=== PATIENT | female | born 1935 | race Caucasian/White ===

== ENCOUNTER 2021-01-20 14:42 | Outpatient (CLI) | payer MEDICARE, SELFPAY ==
--- NOTE | ~2021-01-20 | XR_ITS ---
XR bone survey comp/metastic 01/20/2021 16:12 Indication: Stable myeloma Procedure: Skeletal survey performed including AP view of the chest, abdomen and pelvis; AP and later al swimmer's views of the cervical, thoracic and lumbar spine; lateral view of the skull and AP and l ateral views of the appendicular skeleton including the hands and feet Comparison: 06/16/2017 Findings: There are subtle lytic lesions of the right humerus seen on one view only. No other suspici ous lytic or blastic lesions are identified. There is right frontal craniotomy defect. Old healed fra cture of the left radius. Moderate spondylosis of the cervical, thoracic and lumbar spine. 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 There is moderate polyarticular osteoart hritis Impression: 1: Subtle lytic lesions of the right humerus seen on one view only. Myelomatous involvement cannot be excluded. Otherwise, no suspicious lytic or blastic bone lesions. Reviewed, dictated and finalized at location A. R INSPECTOR Impression: 1: Subtle lytic lesions of the right humerus seen on one view only. Myelomatous involvement cannot be excluded. Otherwise, no suspicious lytic or blastic bone lesions.
== END 2021-01-20 14:43 | disposition home or self-care (01) ==
PROVIDERS: PCP Internal Medicine; Visit Provider Internal Medicine Hematology & Oncology
DX: C90.00 Multiple myeloma not having achieved remission (principal)
CPT/HCPCS: 77075

== ENCOUNTER 2021-04-23 12:47 | Outpatient (CLI) | payer MEDICARE, SELFPAY ==
--- NOTE | ~2021-04-23 | MR_ITS ---
EXAMINATION: MR brain/brain stem wo/w con DATE: 04/23/2021 13:46 INDICATION: Multiple myeloma not having achieved remission. TECHNIQUE: Magnetic resonance imaging (MRI) of the brain and brainstem was performed without with 15 mL MultiHance intravenous contrast. Sequences included sagittal and axial T1-weighted FSE, axial diff usion-weighted FS EPI, axial T2*-weighted GRE, axial T2-weighted FLAIR Propeller, and axial T2-weight ed Propeller. Postcontrast sequences included axial, sagittal, and coronal T1-weighted FSE. Apparent diffusion coefficient (ADC) maps were created. COMPARISON: None. FINDINGS: There is chronic encephalomalacia in anterior right frontal lobe with old blood products. T here are changes of right-sided craniotomy. There is no acute ischemic infarct or intracranial mass l esion. There are scattered areas of nonspecific increased T2-weighted signal intensity in the cerebra l white matter and genny, which is within normal limits for the patient's age. There is mild ex vacuo dilatation of anterior body of right lateral ventricle. There are likely changes of ocular lens repla cement surgeries. There is mild mucosal thickening in the paranasal sinuses. There is a trace right m astoid effusion. IMPRESSION: 1. Chronic encephalomalacia in anterior right frontal lobe. Reviewed, dictated and finalized at location A.
--- NOTE | ~2021-04-23 | PE_ITS ---
EXAMINATION: PET skull to mid thigh DATE: 04/23/2021 15:48 INDICATION: Multiple myeloma TECHNIQUE: Blood glucose level was 95 mg/dL. 8.963 mCi of 18-fluorodeoxyglucose (18-FDG) was administ ered i.v. Low dose computed tomography (CT) images were acquired from the base of the brain to the pr oximal thighs for attenuation correction and anatomic localization. Positron emission tomography (PET ) images were acquired in the same distribution beginning 61 minutes after injection. Images includin g fused PET/CT images were reconstructed in axial, coronal, and sagittal planes. Automated exposure c ontrol technique was employed. The dose-length product was 990.83mGy-cm. COMPARISON: PET/CT dated 08/28/2019 FINDINGS: Head/neck: Encephalomalacia in the anterior right frontal lobe with overlying right frontal craniotomy. There is symmetric increased activity in the oral cavity, palatine tonsils, parotid glands, longus capitis mu scles, laryngeal muscles and ocular muscles without CT correlate, likely physiologic. No pathological ly enlarged cervical lymphadenopathy or suspicious foci of increased FDG uptake in the visualized hea d or neck. Chest: Calcified right upper lobe nodule consistent with old granulomatous disease. No other pulmonary nodul es, pulmonary edema, pneumonia or pleural effusion. Heart size is normal. Thoracic aorta is normal in caliber. No pathologically enlarged or FDG avid thoracic lymphadenopathy. Abdomen/pelvis/proximal thighs: Physiologic renal accumulation and excretion of FDG activity in the kidneys, bladder and along portio ns of ureters. There are couple renal cysts the largest a 3.1 cm exophytic at the left renal cyst. No rmal degree and heterogenous pattern of increased uptake throughout the liver without radiologic valerie elate or dominant FDG avid lesion. The gallbladder, pancreas, spleen and bilateral adrenal glands are normal. Mild uptake scattered throughout the bowels without radiologic correlate, also likely physio logic. Postoperative changes at the proximal colon. The uterus is not identified and has likely been surgically resected. No other abnormal foci of increased FDG uptake or pathologically enlarged lymp hadenopathy in the abdomen, pelvis or proximal thighs. Musculoskeletal: There is increasing sclerosis at the site of a prior permeative lesion at the right sacral ala which demonstrated intense FDG uptake on study dated 03/27/2019. The lesion remains without increased FDG up take on the current study. There is increased muscular uptake in the bilateral forearms and in the childs nds which is likely physiologic due to recent muscular activity. There is increased soft tissue uptak e about the bilateral humeral heads where there is calcific lesions consistent with chronic calcific tendinitis. No abnormal FDG uptake associated with an old fracture with sclerosis at the medial head of the right clavicle. Mild soft tissue uptake at the bilateral greater trochanters consistent with t rochanteric bursitis. No other suspicious lytic, blastic or FDG avid bone lesions. IMPRESSION: 1. No abnormal FDG uptake associated with a a previously lytic, currently sclerotic lesion at the rig ht sacroiliac consistent with treated myeloma. 2. No increased FDG uptake associated with a healed fracture of the medial head of the right clavicle which demonstrates greater than typical degree of sclerosis suggesting this may have represented a p athologic fracture related to additional treated myeloma. 3. No other bone or soft tissue lesions suspicious for myeloma or other malignancy. Of note, a prior FDG avid lesion at the distal metaphyseal region of the left femur is not included within the field o f imaging in the current study. Reviewed, dictated and finalized at location A. Electronically signed by Gurdeep Hutton
[2021-04-23 14:43] LABS: Glucose Point of Care 95 mg/dl (65-105)
== END 2021-04-23 12:48 | disposition home or self-care (01) ==
PROVIDERS: PCP Internal Medicine; Visit Provider Internal Medicine Hematology & Oncology
DX: C90.00 Multiple myeloma not having achieved remission (principal); G93.89 Other specified disorders of brain
CPT/HCPCS: 70553; 78815; 82948; A9552; A9577

== ENCOUNTER 2021-09-02 12:57 | Outpatient (CLI) | payer MEDICARE, SELFPAY ==
[2021-09-02 14:49] LABS: Vitamin D 25 Hydroxy 28.7 ng/mL
== END 2021-09-02 12:58 | disposition home or self-care (01) ==
LOC: ANHLAB 12:59
PROVIDERS: PCP Internal Medicine; Visit Provider Internal Medicine
DX: E55.9 Vitamin D deficiency, unspecified (principal)
CPT/HCPCS: 36415; 82306

== ENCOUNTER → 2021-09-10 10:50 | Outpatient (CLI) | payer MEDICARE, SELFPAY ==
--- NOTE | ~2021-09-10 | XR_ITS ---
EXAMINATION: XR knee LT 3V DATE: 09/10/2021 11:22 INDICATION: Osteoarthritis of left knee. TECHNIQUE: 3 views of left knee including standing views were obtained. COMPARISON: Left knee radiographs 09/16/2019 FINDINGS: Bone alignment is normal. No fracture. There is moderate osteoarthritis of medial compartme nt and mild osteoarthritis of lateral and patellofemoral compartments. There is chondrocalcinosis of the menisci. There is a small knee joint effusion. IMPRESSION: 1. Moderate left knee osteoarthritis. 2. Small left knee joint effusion. Reviewed, dictated and finalized at location A.
--- NOTE | ~2021-09-10 | XR_ITS ---
EXAMINATION: XR knee RT 3V DATE: 09/10/2021 11:22 INDICATION: Right knee osteoarthritis. TECHNIQUE: 3 views of right knee including standing views were obtained. COMPARISON: Right knee radiographs 09/22/2009 FINDINGS: Bone alignment is normal. No fracture. There is moderate osteoarthritis of medial compartme nt and mild osteoarthritis of lateral and patellofemoral compartments. There is chondrocalcinosis of the menisci. No knee joint effusion. IMPRESSION: 1. Moderate right knee osteoarthritis. Reviewed, dictated and finalized at location A.
== END ==
PROVIDERS: PCP Internal Medicine; Visit Provider Nurse Practitioner Adult Health
DX: M17.0 Bilateral primary osteoarthritis of knee (principal); M25.462 Effusion, left knee
CPT/HCPCS: 73562

== ENCOUNTER 2021-11-23 08:03 | Outpatient (CLI) | payer MEDICARE, SELFPAY ==
--- NOTE | ~2021-11-23 | MM_ITS ---
EXAMINATION: MM screening vu BI w shukri HISTORY: Screening TECHNIQUE: Craniocaudal and mediolateral oblique 3-D tomosynthesis images were obtained and synthetic 2-D images were generated. CAD analysis was submitted and interpreted. COMPARISON: 02/06/2019 BREAST PARENCHYMAL COMPOSITION: The breasts are almost entirely fatty. FINDINGS: There is no evidence of suspicious mass, calcification, or architectural distortion to sugg est malignancy in either breast. There has been no suspicious interval change. IMPRESSION: 1. No mammographic evidence of malignancy. 2. Recommend routine screening mammography in one year. BI-RADS Category 1: Negative Reviewed, dictated and finalized at location A. 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
== END 2021-11-23 08:04 | disposition home or self-care (01) ==
LOC: ANHIMG 08:04
PROVIDERS: PCP Internal Medicine; Visit Provider Nurse Practitioner
DX: Z12.31 Encounter for screening mammogram for malignant neoplasm of breast (principal)
CPT/HCPCS: 77063; 77067

== ENCOUNTER 2022-02-12 15:59 | Outpatient (CLI) | payer MEDICARE, SELFPAY ==
--- NOTE | ~2022-02-12 | XR_ITS ---
EXAMINATION: XR knee LT 3V DATE: 02/12/2022 16:23 INDICATION: Left knee pain. TECHNIQUE: 3 views of left knee were obtained. COMPARISON: Left knee radiographs 09/10/2021 FINDINGS: Bone alignment is normal. No fracture. There is moderate osteoarthritis of medial compartme nt and mild osteoarthritis of lateral and patellofemoral compartments. There is a small knee joint ef fusion. IMPRESSION: 1. Stable moderate left knee osteoarthritis. 2. Small left knee joint effusion. Reviewed, dictated and finalized at location A.
== END 2022-02-12 16:00 | disposition home or self-care (01) ==
PROVIDERS: PCP Internal Medicine; Visit Provider Internal Medicine
DX: M17.12 Unilateral primary osteoarthritis, left knee (principal); M25.462 Effusion, left knee
CPT/HCPCS: 73562

== ENCOUNTER 2022-03-17 10:23 | Outpatient (CLI) | payer MEDICARE, SELFPAY ==
[2022-03-17 15:54] LABS: Vitamin D 25 Hydroxy 25.9 ng/mL
== END 2022-03-17 10:24 | disposition home or self-care (01) ==
PROVIDERS: Nurse Practitioner; PCP Internal Medicine; Visit Provider Internal Medicine Hematology & Oncology
DX: F32.9 Major depressive disorder, single episode, unspecified (principal); E55.9 Vitamin D deficiency, unspecified
CPT/HCPCS: 36415; 82306; 84443

== ENCOUNTER 2022-03-24 13:49 | Outpatient (CLI) | payer MEDICARE, SELFPAY ==
--- NOTE | ~2022-03-24 | DEXA_ITS ---
Bone Density Report Name: CAROLA BURCIAGA Age: 87 Sex: Female Ethnicity: White Date of : 1935 Indication: monitoring treatment; height loss; prior fracture; cancer; asthma or emphysema; hysterectomy; postmenopausal Referring Provider: MARY SERRANO Study: Bone densitometry was performed. Exam Date: March 24, 2022 Accession number: [id number] Bone Density: Region BMD T-score Z-score Classification AP Spine(L2, L3, L4) 1.354 2.5 5.5 Normal Femoral Neck (Left) 0.778 -0.6 1.9 Normal Total Hip (Left) 0.900 -0.3 2.0 Normal Femoral Neck (Right) 0.815 -0.3 2.2 Normal Total Hip (Right) 0.911 -0.3 2.1 Normal Total Hip Mean 0.906 -0.3 2.1 Normal World Health Organization criteria for BMD impression classify patients as: Normal (T-score at or above -1.0), Osteopenia (T-score between -1.0 and -2.5), or Osteoporosis (T-score at or below -2.5). 10-year Fracture Risk: FRAX not reported because: All T-scores for Spine Total, Hip Total, Femoral Neck at or above -1.0 Treated for osteoporosis Previous Exams: Region Exam Age BMD T-score BMD Change BMD Change Date g/cm2 vs Baseline vs Previous AP Spine (L2-L4) 03/24/2022 87 1.354 2.5 0.122 (9.9%)# 0.126 (10.3%)* 08/07/2015 80 1.228 1.4 -0.005 (-0.4%) -0.005 (-0.4%) 02/08/2013 78 1.233 1.4 Total Hip(Left) 03/24/2022 87 0.900 -0.3 -0.076 (-7.8%) -0.050 (-5.3%) 02/06/2019 84 0.950 0.1 -0.026 (-2.7%) -0.024 (-2.5%) 08/07/2015 80 0.975 0.3 -0.002 (-0.2%) -0.002 (-0.2%) 02/08/2013 78 0.977 0.3 Total Hip(Right) 03/24/2022 87 0.911 -0.3 -0.057 (-5.9%) 0.004 (0.4%) 02/06/2019 84 0.907 -0.3 -0.061 (-6.3%) -0.018 (-1.9%) 08/07/2015 80 0.925 -0.1 -0.043 (-4.5%) -0.043 (-4.5%) 02/08/2013 78 0.968 0.2 *Denotes significance at 95% confidence level, LSC for AP Spine = 0.022 g/cm2, LSC for Total Hip = 0.027 g/cm2 # Denotes dissimilar scan types or analysis methods Clinical Information Provided by Patient: Has had a low trauma fracture Is being treated for osteoporosis Has used the following medications: Vitamin D, Calcium, xgeva Has the following medical conditions: Asthma or Emphysema, Cancer, Hysterectomy, multiple myloma Patient maximum height was 62.5 Menopause Age: 44 No regular weight bearing exercise Onset of menses at age 15 Number of children 2 Impression: The patient has normal bone mass. The patient has risk factors, includi
== END 2022-03-24 13:50 | disposition home or self-care (01) ==
LOC: ANHIMG 13:50
PROVIDERS: PCP Internal Medicine; Visit Provider Nurse Practitioner
DX: Z78.0 Asymptomatic menopausal state (principal)
CPT/HCPCS: 77080

== ENCOUNTER 2022-07-29 13:08 | Outpatient (CLI) | payer MEDICARE, SELFPAY ==
--- NOTE | ~2022-07-29 | US_ITS ---
EXAMINATION: US venous doppler [facility] DATE: 07/29/2022 13:54 INDICATION: Left lower limb swelling. TECHNIQUE: Grayscale ultrasound images without and with compression and Doppler ultrasound images of the left lower extremity veins were obtained. COMPARISON: Ultrasound 09/17/2019 FINDINGS: The visualized portions of left common femoral vein, profunda (deep) femoral vein, femoral vein, popl iteal vein, peroneal veins, posterior tibial veins, and greater saphenous vein outflow are patent. IMPRESSION: 1. No deep venous thrombosis. Reviewed, dictated and finalized at location A.
== END 2022-07-29 13:09 | disposition home or self-care (01) ==
PROVIDERS: PCP Internal Medicine; Visit Provider Internal Medicine Hematology & Oncology
DX: M79.89 Other specified soft tissue disorders (principal)
CPT/HCPCS: 93971

== ENCOUNTER 2022-09-14 11:38 | Outpatient (CLI) | payer MEDICARE, SELFPAY ==
[2022-09-14 14:38] LABS: Cholesterol 171 mg/dL (0-200); HDL Direct 53 mg/dL; Triglycerides 162 mg/dL (<150)
[2022-09-14 14:49] LABS: LDL Cholesterol Direct 78 mg/dL
[2022-09-14 14:54] LABS: Vitamin D 25 Hydroxy 35.8 ng/mL
== END 2022-09-14 11:39 | disposition home or self-care (01) ==
PROVIDERS: PCP Internal Medicine; Visit Provider Internal Medicine
DX: E78.5 Hyperlipidemia, unspecified (principal); E55.9 Vitamin D deficiency, unspecified
CPT/HCPCS: 36415; 80061; 82306

== ENCOUNTER 2023-02-03 09:50 | Outpatient (CLI) | payer MEDICARE, SELFPAY ==
--- NOTE | ~2023-02-03 | MM_ITS ---
EXAMINATION: MM screening vu BI w shukri HISTORY: Screening TECHNIQUE: Craniocaudal and mediolateral oblique 3-D tomosynthesis images were obtained and synthetic 2-D images were generated. CAD analysis was submitted and interpreted. COMPARISON: Comparison to multiple prior studies sequentially, with oldest reviewed study dated 02/06. BREAST PARENCHYMAL COMPOSITION: There are scattered areas of fibroglandular density. FINDINGS: There is no evidence of suspicious mass, calcification, or architectural distortion to sugg est malignancy in either breast. There has been no suspicious interval change. IMPRESSION: 1. No mammographic evidence of malignancy. 2. Recommend routine screening mammography in one year. BI-RADS Category 1: Negative Reviewed, dictated and finalized at location A.
== END 2023-02-03 09:51 | disposition home or self-care (01) ==
LOC: ANHIMG 09:52
PROVIDERS: PCP Internal Medicine; Visit Provider Internal Medicine
DX: Z12.31 Encounter for screening mammogram for malignant neoplasm of breast (principal)
CPT/HCPCS: 77063; 77067

== ENCOUNTER 2023-03-25 07:30 | Outpatient (CLI) | payer MEDICARE, SELFPAY ==
--- NOTE | ~2023-03-25 | XR_ITS ---
XR abdomen/kub 1V 03/25/2023 07:56 INDICATION: Microscopic hematuria TECHNIQUE: KUB COMPARISON: None FINDINGS: Bowel gas pattern is normal. There is no evidence of free air, mass, organomegaly, ascites or obstruction. No abnormal calculi are seen. The bones appear intact. There is severe lumbar spon dylosis. There is moderate osteoarthritis of the hips. IMPRESSION: 1: No acute abdominal abnormality identified. Reviewed, dictated and finalized at location B.
--- NOTE | ~2023-03-25 | CT_ITS ---
EXAMINATION: CT abdomen pelvis wo/w con DATE: 03/25/2023 08:31 INDICATION: Microscopic hematuria. Recurrent UTIs. TECHNIQUE: Computed tomography (CT) of the abdomen and pelvis was performed without and with 130 cc O mnipaque 350 intravenous contrast. The dose-length product was 2184.69 mGy-cm. Automated exposure con trol and iterative reconstruction technique were employed. COMPARISON: CT dated 08/10/2017. FINDINGS: 2 mm right middle lobe nodule, likely benign. No pneumothorax. Heart size normal. No signif icant pleural or pericardial effusion. Small hiatal hernia. Small supraumbilical ventral hernia conta ining fat. Nonobstructive bowel pattern. There is diffuse bladder wall thickening. There are left par apelvic and cortical cysts. Heart size normal. No significant pleural or pericardial effusion. Fatty infiltration of the liver. The spleen, pancreas, adrenal glands and are unremarkable. There is a surgical anastomosis in the right lower abdomen. There are multiple pelvic phleboliths. Nonobstruct josephine bowel pattern. No free air or free fluid. Gallbladder is present. There is irregular osteolysis a nd sclerosis of the right aspect of the sacrum which is new compared with prior study. This may repre sent a chronic sacral fracture, Paget's disease, or metastatic disease if there is a known history of malignancy. There is advanced osteoarthritis of the hips. Ureters are normal in course and caliber. IMPRESSION: 1. Diffuse bladder wall thickening, suspicious for cystitis. 2: Irregular mixed osteolysis and sclerosis of the right aspect of the sacrum which is new compared w ith prior study. This may represent a chronic sacral fracture, Paget's disease, or metastatic disease /myeloma if there is a known history of malignancy. Reviewed, dictated and finalized at location B. IMPRESSION: 1. Diffuse bladder wall thickening, suspicious for cystitis. 2: Irregular mixed osteolysis and sclerosis of the right aspect of the sacrum w hich is new compared with prior study. This may represent a chronic sacral frac ture, Paget's disease, or metastatic disease/myeloma if there is a known histor y of malignancy.
[2023-03-25 08:12] LABS: Estimated Glomerular Filt Rate > 60
== END 2023-03-25 07:31 | disposition home or self-care (01) ==
PROVIDERS: PCP Internal Medicine; Visit Provider Nurse Practitioner Adult Health
DX: R31.29 Other microscopic hematuria (principal)
CPT/HCPCS: 74018; 74178; Q9967

== ENCOUNTER 2023-09-26 13:30 | Outpatient (CLI) | payer MEDICARE, SELFPAY ==
[2023-09-26 13:37] LABS: Hematocrit 33.5 % (37.0-47.0); Hemoglobin 10.4 g/dL (12.0-15.0); Mean Corpuscular Hemoglobin 31.5 pg (26-34); Mean Corpuscular Volume 101.5 fl (80-100); Mean Platelet Volume 10.5 fl (7.4-10.4); Platelet Count Result 177 k/mm3 (150-375); White Blood Count 5.1 K/mm3 (4.5-10.0)
[2023-09-26 16:50] LABS: Alanine Aminotransferase 18 U/L (6-35); Albumin Level 3.5 g/dL (3.5-5.1); Alkaline Phosphatase 71 U/L (38-126); Anion Gap 8 mmol/L (8-16); Aspartate Amino Transferase 26 U/L (14-36); Bilirubin,Total 0.6 mg/dL (0.2-1.3); Blood Urea Nitrogen 12 mg/dL (7-17); Calcium 8.4 mg/dL (8.4-10.2); Carbon Dioxide 26 mmol/L (22-30); Chloride 103 mmol/L (98-107); Cholesterol 157 mg/dL (0-200); Estimated Glomerular Filt Rate 59; Glucose 83 mg/dL (65-110); HDL Direct 50 mg/dL; Potassium 4.8 mmol/L (3.4-5.0); Sodium 137 mmol/L (137-145); Triglycerides 169 mg/dL (<150)
[2023-09-26 17:01] LABS: LDL Cholesterol Direct 71 mg/dL
== END 2023-09-26 13:31 | disposition home or self-care (01) ==
PROVIDERS: PCP Family Medicine; Visit Provider Internal Medicine Hematology & Oncology
DX: Z00.00 Encounter for general adult medical examination without abnormal findings (principal); E03.9 Hypothyroidism, unspecified
CPT/HCPCS: 36415; 80053; 80061; 85027

== ENCOUNTER 2023-11-23 06:20 | Inpatient (IN) | payer MEDICARE, SELFPAY ==
[2023-11-23] VITALS (15 sets, daily range): BP systolic 103–134; BP diastolic 35–97; PULSE 52–78; RESP 16–96; TEMP 36.2–36.8; O2SAT 89–97; BMI 32.7
--- NOTE | ~2023-11-23 | XR_ITS ---
Clinical Indication: Cough AP and lateral views of the chest: Comparison: 04/18/2019 Findings: Stable granuloma versus prominent vessel en face at the right perihilar region. The lungs a re otherwise clear, without evidence of focal consolidation or pleural effusion. Cardiomediastinal s ilhouette is within normal limits. Bones and soft tissues are unremarkable. Impression: No acute abnormality. Reviewed, dictated and finalized at location . NG TIER Impression: No acute abnormality.
--- NOTE | ~2023-11-23 | US_ITS ---
EXAMINATION: US abdomen limited DATE: 11/26/2023 11:58 INDICATION: Liver enzymes TECHNIQUE: Multiple grayscale and Doppler ultrasound images of the abdomen were obtained. COMPARISON: None available FINDINGS: Bowel gas obscures visualization of the pancreas. The visualized portions of the pancreas a re unremarkable. The liver is normal with normal echogenicity and echotexture. No surface nodularity. Normal hepatopetal flow in the main portal vein. Gallbladder is contracted but otherwise normal in a ppearance. The normal common bile duct measures 2 mm. There was no sonographic Parada sign. IMPRESSION: 1. No sonographic correlate for the patient's symptoms. Reviewed, dictated and finalized at location A. FINISHER
--- NOTE | 2023-11-23 06:40 | ECG_ITS ---
Measurements Intervals [place] Rate: 63 P: 63 DE: 155 QRS: 52 QRSD: 90 T: 54 QT: 421 QTc: 433 Interpretive Statements SINUS RHYTHM NORMAL ECG COMPARED TO ECG 09/16/2019 23:23:17 NO SIGNIFICANT CHANGES Electronically Signed On 11-23-2023 6:55:10 DATA NETWORK ARCHITECT by Aristides Leblanc D.O.
[2023-11-23 06:58] LABS: Appearance Urine Slightly Cloudy (Clear); Color Urine Light Yellow (Yellow); Glucose Urine UA Negative (Negative); Protein Urine Negative (Negative); Specific Grav Ur 1.015 (1.001-1.035)
[2023-11-23 06:59] LABS: Add Urine Microscopic? YES; Bilirubin Urine Negative (Negative); Blood Urine Trace-Intact (Negative); Ketones Urine Negative (Negative); Leukocyte Esterase Ur 2+ LEU/UL (Negative); Nitrate Urine Positive (Negative); Urobilinogen Urine 0.2 mg/dL (<2.0)
[2023-11-23 07:01] LABS: Basophils Absolute Auto 0.1 K/mm3 (0.0-0.1); Basophils Percent Auto 0.8 % (0.2-1.2); Eosinophils Absolute Auto 0.2 K/mm3 (0-0.3); Eosinophils Percent Auto 3.9 % (0-4.4); Hematocrit 32.8 % (37.0-47.0); Hemoglobin 10.3 g/dL (12.0-15.0); Immature Granulocyte Absolute 0.02 K/mm3 (0.00-0.031); Immature Granulocyte Percent A 0.3 % (0-0.5); Lymphocytes Absolute Auto 0.98 K/mm3 (0.9-3.2); Mean Corpuscular HGB Conc 31.4 g/dl (32-36); Mean Corpuscular Hemoglobin 31.1 pg (26-34); Mean Corpuscular Volume 99.1 fl (80-100); Mean Platelet Volume 11.4 fl (7.4-10.4); Monocytes Absolute Auto 0.8 K/mm3 (0.1-0.6); Monocytes Percent Auto 13.7 % (2.6-8.5); Neutrophils Percent Auto 65.3 % (45.5-73.1); Platelet Count Result 195 k/mm3 (150-375); Red Blood Count 3.31 M/mm3 (4.2-5.4); White Blood Count 6.1 K/mm3 (4.5-10.0)
[2023-11-23 07:13] LABS: Alanine Aminotransferase 31 U/L (6-35); Albumin Level 3.1 g/dL (3.5-5.1); Alkaline Phosphatase 97 U/L (38-126); Anion Gap 6 mmol/L (8-16); Aspartate Amino Transferase 34 U/L (14-36); Bilirubin,Total 1.1 mg/dL (0.2-1.3); Blood Urea Nitrogen 12 mg/dL (7-17); Carbon Dioxide 28 mmol/L (22-30); Chloride 104 mmol/L (98-107); Estimated CRCL calculation 37 ml/min; Estimated Glomerular Filt Rate 59; Glucose 103 mg/dL (65-110); Potassium 3.4 mmol/L (3.4-5.0); Sodium 138 mmol/L (137-145)
[2023-11-23 07:26] LABS: Influenza A QL RT-PCR Negative (Negative); Influenza B QL RT-PCR Negative (Negative); RSV RNA, RT-PCR Negative (Negative); SARS-CoV-2 RNA PCR Negative (Negative)
[2023-11-23 07:36] LABS: RBC Urine 0-2 /hpf (0-2); Squamous Epithelial Cell Urine Rare /hpf (Few)
[2023-11-23 07:37] LABS: Bacteria Urine 3+ /hpf
--- NOTE | 2023-11-23 08:13 | ED.GENADULT ---
HPI - General Adult General Chief complaint: Weakness Stated complaint: cough Time Seen by Provider: 11/23/23 07:13 Source: patient and family Mode of arrival: ambulatory Limitations: no limitations History of Present Illness HPI narrative: 88-year-old with a history of multiple myeloma, neuropathy , asthma was brought in by daughter with a complaint of mild weakness and dry cough for past few days. As for the family until about a week ago she was ambulatory and was able to daily chores on a own including driving however for the past 4 days now she is having difficulty in walking. No history of fever or chills denies any recent falls. Denies any chest pain, shortness of breath, nausea or vomiting. Related Data Home Medications Medication Instructions Recorded Confirmed budesonide-formoterol HFA 160 1 puff inhalation Q12H 09/03/19 10/24/23 mcg-4.5 mcg/actuation aerosol inhaler (Symbicort) multivitamin 1 tablet PO DAILY 09/03/19 10/24/23 zinc amino acid chelate 50 mg 1 mg PO BID 09/03/19 10/24/23 tablet albuterol sulfate 90 mcg/actuation 2 puff inhalation Q4H PRN Allergy 10/23/19 10/24/23 aerosol inhaler (ProAir HFA) Symptoms antiarthritic combination no.2 900 1 mg PO BID 04/14/21 10/24/23 mg tablet (glucosamine-chondroitin) calcium carbonate 600 mg calcium 600 mg PO BID 04/14/21 10/24/23 (1,500 mg) tablet (Calcium) gabapentin 100 mg capsule 100 mg PO DAILY 04/14/21 10/24/23 (Neurontin) latanoprost 0.005 % eye drops 1 drp ophthalmic (eye) QPM 04/14/21 10/24/23 lenalidomide 20 mg capsule 10 mg PO .COMPLEX 04/14/21 10/24/23 (Revlimid) cholecalciferol (vitamin D3) 50 100 mcg PO DAILY 03/18/22 10/24/23 mcg (2,000 unit) tablet Previgen 1 tab-cap PO DAILY 01/31/23 10/24/23 Allergies Allergy/AdvReac Type Severity Reaction Status Date / Time chlorpromazine Allergy Mild Unknown Verified 11/23/23 06:39 morphine Allergy Mild HICCUPS Verified 11/23/23 06:39 prochlorperazine Allergy Mild Unknown Verified 11/23/23 06:39 nalbuphine Allergy Unknown Unknown Verified 11/23/23 06:39 Review of Systems Review of Systems: All systems reviewed & are unremarkable except as noted in HPI and below Constitutional: Constitutional: Reports as per HPI Eyes: Eyes: Reports no additional eye complaints ENT: Reports system reviewed and no additional complaints, except as documented Cardiovascular: Cardiovascular: Reports no additional cardiovascular complaints Respiratory: Respiratory: Reports as per HPI and Reports cough Gastrointestinal: Gastrointestinal: Reports no additional gastrointestinal complaints Musculoskeletal: Musculoskeletal: Reports no additional musculoskeletal complaints Integumentary/Breasts: Skin/Breast: Reports system reviewed and no additional complaints, except as docu Neurologic: Reports system reviewed and no additional complaints, except as documented Psychiatric: Psychiatric: Reports no additional psychiatric complaints Endocrine: Endocrine: Reports no additional endocrine complaints [facility] Past Medical History Medical History (Updated 11/23/23 @ 08:23 by Dalton Carter MD) 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 Pulmonary embolism Bilateral lungs Surgical History Surgical History H/O: hysterectomy History of appendectomy S/P rotator cuff repair Family History Family History Sibling Diabetes mellitus Patient's sister is in good health Mother Family history of anemia Carcinoma of colon Father Family history of cardiovascular disease Abdominal aortic aneurysm Daughter Lyme disease Social History Social History (Reviewed
[2023-11-23] MEDS: SODIUM CHLORIDE 0.9% IV 1,000 ML 125 ML IV CONT (08:30)
--- NOTE | 2023-11-23 09:30 | PCPTNOTE ---
Waiting on complete workup prior to PT evaluation.
[2023-11-23 09:35] LABS: Procalcitonin 0.1 ng/mL
--- NOTE | 2023-11-23 11:06 | ADMGEN ---
This patient, Narcisa Wheatley, was admitted to Medical Room 252-01. Patient/family oriented to hospital policies and general routines including ID bracelet, bed and alarms, visiting hours, pain management, procedures, bathroom and other care routines, personal items, smoking policy, room service/diet, and visiting hours. Information on how to activate the Rapid Response Team has been discussed. Patient/Family are encouraged to report perceived risks to care and to ask questions if they do not understand what they are told or what they should do.
--- NOTE | 2023-11-23 13:22 | PM.IMHP ---
H&P: HPI History of Present Illness Date/Time: 11/23/23 13:22 Chief Complaint: weakness Narrative: This is an 88 year old female with a significant past medical history of multiple myeloma with mets to bone, neuropathy, pulmonary embolism, hysterectomy, appendectomy, RCR who presented to the hospital with weakness and dry cough for the past few days. Work up in the hospital included a chest x-ray that was negative for any acute cardiopulmonary disease. Labs were essentially normal except for hgb 10.3, Hct 32.8. UA shown positive nitrates,2+ leukocytes, 3+ bacteria. Blood cultures obtained and are pending. Spoke with lab today and they will send UA for culture. Respiratory panel was negative for influenza, RSV, COVID. On examination today patient is alert to voice oriented x3 lying in the bed. Daughter is at the bedside. Daughter states that her mother has not felt well for quite some time and has gotten worse in the last 2 weeks with increased weakness and uncontrollable coughing spells. She states on Tuesday her mother fell at home and had EMS help her get back up. Since that time the daughter has decided to move her into her home since her mom was living by herself up until now. With the increase in weakness and uncontrollable coughing she came in for further evaluation. In the ED she was found to be hypoxic at 88-89% and was placed on 2 L nasal cannula. Daughter reports that patient has tried Del some and Tessalon Perles 100 mg at home with no relief in her symptoms. She denies any recent sick contacts. The daughter also tested her for COVID which was negative x2. Patient does have a barky cough however she does not have any wheezing, rales, rhonchi, or any signs of acute respiratory distress at this time. We will go ahead and start the patient on IV steroids, will increase her Tessalon Perles to 200 mg, we will also start her on Robitussin for her cough. We will also get PT and OT for evaluation of her weakness. 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 Pulmonary embolism Bilateral lungs Surgical History Surgical History H/O: hysterectomy History of appendectomy S/P rotator cuff repair Family History Family History Sibling Diabetes mellitus Patient's sister is in good health Mother Family history of anemia Carcinoma of colon Father Family history of cardiovascular disease Abdominal aortic aneurysm Daughter Lyme disease Social History Social History Social History: The patient lives at home by herself and has stairs up to her room. She has a Rollator and cane at home if needed but usually walks independently. Smoking status: Never smoker Second hand tobacco smoke exposure: No Alcohol intake: current Alcohol use details: wine socially Substance use: never Substance use type: does not use Do You Feel Safe in your Home?: Yes Lack of Transportation: No Lack of Food: Never True Current Housing: I Have Housing Concerned About Future Housing: No Difficulty Paying Gas/Electric Bills: No Difficulty Paying for Meds: No Currently Unemployed: No Education: Bachelor's Degree Difficulty w/ Childcare or Family Care: No Living arrangements: alone Gender identity (if verbalized by the patient): Female Spiritual care concerns: No Agree to blood products: Yes Meds Home Medications and Allergies Home Medications Medication Instructions Recorded Confirmed Type budesonide-formot
[2023-11-23] MEDS: IPRATROPIUM BR 0.02% INH SOLN 0.5 MG/2.5 ML VIAL INHALATION ×2 (15:17→20:49)
[2023-11-23] MEDS: ALBUTEROL SULFATE NEB 2.5 MG/3 ML INH INHALATION ×2 (15:17→20:49)
[2023-11-23] MEDS: BENZONATATE 100 MG CAPSULE 200 MG PO (18:14)
[2023-11-23] MEDS: guaiFENesin/DEXTROMETHORPHAN 10 ML UDC PO (18:14)
[2023-11-23] MEDS: methylPREDNISolone SOD SUCC 125 MG VIAL 60 MG IV PUSH (18:14)
[2023-11-23] MEDS: SODIUM CHLORIDE 0.9% IV 1,000 ML 75 ML IV CONT (18:14)
[2023-11-23] MEDS: traZODone HCL 50 MG TABLET PO (18:17)
[2023-11-23] MEDS: methylPREDNISolone SOD SUCC 40 MG VIAL IV PUSH (20:36)
[2023-11-23] MEDS: FLUTICASONE/SALMETEROL 115-21 MCG INHALER 1 PUFF 2 PUFF INHALATION (20:50)
[2023-11-24] VITALS (15 sets, daily range): BP systolic 99–112; BP diastolic 38–58; PULSE 53–95; RESP 14–18; TEMP 36.2–36.4; O2SAT 92–96
[2023-11-24] MEDS: IPRATROPIUM BR 0.02% INH SOLN 0.5 MG/2.5 ML VIAL INHALATION ×4 (02:21→20:51)
[2023-11-24] MEDS: ALBUTEROL SULFATE NEB 2.5 MG/3 ML INH INHALATION ×4 (02:21→20:51)
[2023-11-24 05:23] LABS: Basophils Percent Auto 0.2 % (0.2-1.2); Eosinophils Percent Auto 0.2 % (0-4.4); Hematocrit 32.4 % (37.0-47.0); Immature Granulocyte Absolute 0.02 K/mm3 (0.00-0.031); Immature Granulocyte Percent A 0.5 % (0-0.5); Immature Platelet Fraction Pct 4.7 % (0.9-11.2); Lymphocytes Absolute Auto 0.45 K/mm3 (0.9-3.2); Lymphocytes Percent Auto 10.9 % (18.3-44.2); Mean Corpuscular HGB Conc 27.8 g/dl (32-36); Mean Corpuscular Hemoglobin 30.6 pg (26-34); Mean Corpuscular Volume 110.2 fl (80-100); Mean Platelet Volume 11.8 fl (7.4-10.4); Monocytes Absolute Auto 0.3 K/mm3 (0.1-0.6); Monocytes Percent Auto 6.6 % (2.6-8.5); Neutrophils Absolute Auto 3.4 K/mm3 (1.3-6.7); Neutrophils Percent Auto 81.6 % (45.5-73.1); Platelet Count Result 129 k/mm3 (150-375); Red Blood Count 2.94 M/mm3 (4.2-5.4); Red Cell Distribution Width 18.6 % (11.5-14.5); White Blood Count 4.1 K/mm3 (4.5-10.0)
[2023-11-24 06:23] LABS: Hypochromasia 1+ (NORMAL); Schistocytes Rare (NORMAL)
[2023-11-24 06:24] LABS: Anisocytosis 1+ (NORMAL)
[2023-11-24 06:45] LABS: Alanine Aminotransferase 63 U/L (6-35); Albumin Level 2.5 g/dL (3.5-5.1); Alkaline Phosphatase 104 U/L (38-126); Anion Gap 9 mmol/L (8-16); Aspartate Amino Transferase 94 U/L (14-36); Bilirubin,Total 0.5 mg/dL (0.2-1.3); Blood Urea Nitrogen 10 mg/dL (7-17); Calcium 7.3 mg/dL (8.4-10.2); Carbon Dioxide 18 mmol/L (22-30); Chloride 110 mmol/L (98-107); Estimated CRCL calculation 47 ml/min; Estimated Glomerular Filt Rate > 60; Glucose 142 mg/dL (65-110); Magnesium 2.2 mg/dL (1.6-2.3); Phosphorus 3.3 mg/dL (2.5-4.5); Potassium 4.6 mmol/L (3.4-5.0); Sodium 137 mmol/L (137-145)
[2023-11-24] MEDS: FLUTICASONE/SALMETEROL 115-21 MCG INHALER 1 PUFF 2 PUFF INHALATION ×2 (07:25→20:51)
[2023-11-24] MEDS: BENZONATATE 100 MG CAPSULE 200 MG PO ×3 (10:00→18:05)
[2023-11-24] MEDS: GABAPENTIN 100 MG CAPSULE PO (10:00)
[2023-11-24] MEDS: FERROUS SULFATE 325 MG TABLET DR PO (10:00)
[2023-11-24] MEDS: MONTELUKAST SODIUM 10 MG TABLET PO (10:00)
[2023-11-24] MEDS: methylPREDNISolone SOD SUCC 40 MG VIAL IV PUSH ×2 (10:01→21:07)
[2023-11-24] MEDS: CHOLECALCIFEROL 1,000 UNITS TABLET 4000 UNITS PO (10:01)
[2023-11-24] MEDS: FLUoxetine HCL 10 MG CAPSULE PO (10:15)
[2023-11-24] MEDS: SODIUM CHLORIDE 0.9% IV 1,000 ML 75 ML IV CONT ×2 (11:54→23:57)
[2023-11-24] MEDS: guaiFENesin/DEXTROMETHORPHAN 10 ML UDC PO (12:37)
--- NOTE | 2023-11-24 17:37 | P.PNIM_ITS ---
Progress Note: A&P Assessment and Plan (1) Acute respiratory failure with hypoxia: Code(s): J96.01 - Acute respiratory failure with hypoxia Status: Acute Assessment and Plan: 11/23/23: * Patient found to be hypoxic on arrival to the ER with O2 sat around 88-89% * Patient currently on 2 L nasal cannula * Wean to keep O2 sat greater than 92% * Chest x-ray was negative for any acute cardiopulmonary disease * Continue albuterol and Symbicort inhalers * Blood cultures are obtained and are pending 11/24/23: * Blood cultures showing no growth on preliminary * Continue with current treatment plan (2) Bronchitis: Code(s): J40 - Bronchitis, not specified as acute or chronic Status: Acute Assessment and Plan: 11/23/23: * Patient reports dry cough, no congestion, no postnasal drip * She was seen outpatient by her primary care physician who ordered Singulair * Will give a 1 time dose 60 mg of Solu-Medrol and start patient on 40 mg b.i.d. * Will increase her dose of Tessalon Perles to 200 mg t.i.d. * Will start patient on Robitussin 10 ml p.r.n. for cough * Continue to wean O2 for sat greater than 92% 11/24/23: * Continue with current treatment plan (3) Urinary tract infection: Code(s): N39.0 - Urinary tract infection, site not specified Status: Acute Assessment and Plan: 11/23/23: * UA showing positive nitrates, 2+ leukocytes, 3+ bacteria * Spoke with lab and they will send the UA for culture * Start patient on Rocephin IV for now until we get final read on culture 11/24/23: * UC pending * Continue Rocephin for now (4) Bilateral leg weakness: Code(s): R29.898 - Other symptoms and signs involving the musculoskeletal system Status: Acute Assessment and Plan: 11/23/23: * Likely secondary to prolonged illness * PT and OT ordered * Will get case management involved as well for possible outpatient rehab needs 11/24/23: * Continue with current treatment plan * Case management looking at swing bed at [place] for rehab (5) Fall: Code(s): W19.XXXA - Unspecified fall, initial encounter Status: Acute Assessment and Plan: 11/23/23: * Patient sustained a ground level fall on Tuesday at her home, patient lives alone, this was reported by the daughter. Daughter states in the last few days she has moved her mother in to her house. * Likely secondary to her increased weakness and prolonged illness * PT and OT ordered * Will get case management involved as well for possible outpatient rehab needs 11/24/23: * Continue current treatment plan Time Spent With Patient Time with patient: Greater than 35 minutes Subjective Date/time seen: 11/24/23 17:37 Interval history: 11/23/23: This is an 88 year old female with a significant past medical history of multiple myeloma with mets to bone, neuropathy, pulmonary embolism, hysterectomy, appendectomy, RCR who presented to the hospital with weakness and dry cough for the past few days. Work up in the hospital included a chest x-ray that was negative for any acute cardiopulmonary disease. Labs were essentially normal? except for hgb 10.3, Hct 32.8. UA shown positive nitrates,2+ leukocytes, 3+ bacteria. Blood cultures obtained and are pending. Spoke with lab today and they will send UA for culture.? Respiratory panel was negative for influenza, RSV, COVID.? On examination today patient is alert to voice oriented x3 lying in the bed.? Daughter is at the bedside.? Daughter states that her mother has not felt well for quite some time and has gotten worse in the last 2 weeks with
--- NOTE | 2023-11-24 17:37 | PM.IMPN ---
Progress Note: A&P Assessment and Plan (1) Acute respiratory failure with hypoxia: Code(s): J96.01 - Acute respiratory failure with hypoxia Status: Acute Assessment and Plan: 11/23/23: Patient found to be hypoxic on arrival to the ER with O2 sat around 88-89% Patient currently on 2 L nasal cannula Wean to keep O2 sat greater than 92% Chest x-ray was negative for any acute cardiopulmonary disease Continue albuterol and Symbicort inhalers Blood cultures are obtained and are pending 11/24/23: Blood cultures showing no growth on preliminary Continue with current treatment plan (2) Bronchitis: Code(s): J40 - Bronchitis, not specified as acute or chronic Status: Acute Assessment and Plan: 11/23/23: Patient reports dry cough, no congestion, no postnasal drip She was seen outpatient by her primary care physician who ordered Singulair Will give a 1 time dose 60 mg of Solu-Medrol and start patient on 40 mg b.i.d. Will increase her dose of Tessalon Perles to 200 mg t.i.d. Will start patient on Robitussin 10 ml p.r.n. for cough Continue to wean O2 for sat greater than 92% 11/24/23: Continue with current treatment plan (3) Urinary tract infection: Code(s): N39.0 - Urinary tract infection, site not specified Status: Acute Assessment and Plan: 11/23/23: UA showing positive nitrates, 2+ leukocytes, 3+ bacteria Spoke with lab and they will send the UA for culture Start patient on Rocephin IV for now until we get final read on culture 11/24/23: UC pending Continue Rocephin for now (4) Bilateral leg weakness: Code(s): R29.898 - Other symptoms and signs involving the musculoskeletal system Status: Acute Assessment and Plan: 11/23/23: Likely secondary to prolonged illness PT and OT ordered Will get case management involved as well for possible outpatient rehab needs 11/24/23: Continue with current treatment plan Case management looking at swing bed at [place] for rehab (5) Fall: Code(s): W19.XXXA - Unspecified fall, initial encounter Status: Acute Assessment and Plan: 11/23/23: Patient sustained a ground level fall on Tuesday at her home, patient lives alone, this was reported by the daughter. Daughter states in the last few days she has moved her mother in to her house. Likely secondary to her increased weakness and prolonged illness PT and OT ordered Will get case management involved as well for possible outpatient rehab needs 11/24/23: Continue current treatment plan Time Spent With Patient Time with patient: Greater than 35 minutes Subjective Date/time seen: 11/24/23 17:37 Interval history: 11/23/23: This is an 88 year old female with a significant past medical history of multiple myeloma with mets to bone, neuropathy, pulmonary embolism, hysterectomy, appendectomy, RCR who presented to the hospital with weakness and dry cough for the past few days. Work up in the hospital included a chest x-ray that was negative for any acute cardiopulmonary disease. Labs were essentially normal? except for hgb 10.3, Hct 32.8. UA shown positive nitrates,2+ leukocytes, 3+ bacteria. Blood cultures obtained and are pending. Spoke with lab today and they will send UA for culture.? Respiratory panel was negative for influenza, RSV, COVID.? On examination today patient is alert to voice oriented x3 lying in the bed.? Daughter is at the bedside.? Daughter states that her mother has not felt well for quite some time and has gotten worse in the last 2 weeks with increased weakness and uncontrollable coughing spells.? She states on Tuesday her mother fell at home and had EMS help her get back up.? Since that time the daughter has decided to move her into her home since her mom was living by herself up until now.? With the increase in weakness and uncontrollable coughing she came in for further evaluation.? In the ED she was found to be hypoxic at 88-89
[2023-11-25] VITALS (16 sets, daily range): BP systolic 112–132; BP diastolic 48–63; PULSE 56–86; RESP 16–18; TEMP 36.2–36.6; O2SAT 90–95
[2023-11-25] MEDS: ALBUTEROL SULFATE NEB 2.5 MG/3 ML INH INHALATION ×4 (02:25→20:17)
[2023-11-25] MEDS: IPRATROPIUM BR 0.02% INH SOLN 0.5 MG/2.5 ML VIAL INHALATION ×4 (02:25→20:17)
[2023-11-25 06:15] LABS: Basophils Percent Auto 0.2 % (0.2-1.2); Hematocrit 27.4 % (37.0-47.0); Hemoglobin 8.1 g/dL (12.0-15.0); Immature Granulocyte Absolute 0.04 K/mm3 (0.00-0.031); Immature Granulocyte Percent A 0.9 % (0-0.5); Lymphocytes Percent Auto 8.7 % (18.3-44.2); Mean Corpuscular HGB Conc 29.6 g/dl (32-36); Mean Corpuscular Hemoglobin 31.4 pg (26-34); Mean Corpuscular Volume 106.2 fl (80-100); Mean Platelet Volume 11.8 fl (7.4-10.4); Monocytes Absolute Auto 0.5 K/mm3 (0.1-0.6); Monocytes Percent Auto 11.5 % (2.6-8.5); Neutrophils Absolute Auto 3.6 K/mm3 (1.3-6.7); Neutrophils Percent Auto 78.7 % (45.5-73.1); Platelet Count Result 144 k/mm3 (150-375); Red Blood Count 2.58 M/mm3 (4.2-5.4); Red Cell Distribution Width 18.9 % (11.5-14.5); White Blood Count 4.6 K/mm3 (4.5-10.0)
[2023-11-25 06:30] LABS: Alanine Aminotransferase 92 U/L (6-35); Albumin Level 2.8 g/dL (3.5-5.1); Alkaline Phosphatase 95 U/L (38-126); Anion Gap 8 mmol/L (8-16); Aspartate Amino Transferase 105 U/L (14-36); Bilirubin,Total 0.3 mg/dL (0.2-1.3); Blood Urea Nitrogen 15 mg/dL (7-17); Calcium 7.1 mg/dL (8.4-10.2); Carbon Dioxide 19 mmol/L (22-30); Chloride 110 mmol/L (98-107); Estimated CRCL calculation 42 ml/min; Estimated Glomerular Filt Rate > 60; Glucose 139 mg/dL (65-110); Sodium 137 mmol/L (137-145)
--- NOTE | 2023-11-25 07:07 | P.PNIM_ITS ---
Progress Note: A&P Assessment and Plan (1) Acute respiratory failure with hypoxia: Code(s): J96.01 - Acute respiratory failure with hypoxia Status: Acute Assessment and Plan: 11/23/23: * Patient found to be hypoxic on arrival to the ER with O2 sat around 88-89% * Patient currently on 2 L nasal cannula * Wean to keep O2 sat greater than 92% * Chest x-ray was negative for any acute cardiopulmonary disease * Continue albuterol and Symbicort inhalers * Blood cultures are obtained and are pending 11/24/23: * Blood cultures showing no growth on preliminary * Continue with current treatment plan 11/25/23: * Blood cultures showing no growth day 2 * Now on room air * Continue with current treatment plan. (2) Bronchitis: Code(s): J40 - Bronchitis, not specified as acute or chronic Status: Acute Assessment and Plan: 11/23/23: * Patient reports dry cough, no congestion, no postnasal drip * She was seen outpatient by her primary care physician who ordered Singulair * Will give a 1 time dose 60 mg of Solu-Medrol and start patient on 40 mg b.i.d. * Will increase her dose of Tessalon Perles to 200 mg t.i.d. * Will start patient on Robitussin 10 ml p.r.n. for cough * Continue to wean O2 for sat greater than 92% 11/24/23: * Continue with current treatment plan 11/25/23: * Currently on room air * Continue with current treatment plan (3) Urinary tract infection: Code(s): N39.0 - Urinary tract infection, site not specified Status: Acute Assessment and Plan: 11/23/23: * UA showing positive nitrates, 2+ leukocytes, 3+ bacteria * Spoke with lab and they will send the UA for culture * Start patient on Rocephin IV for now until we get final read on culture 11/24/23: * UC pending * Continue Rocephin for now 11/25/23: * UC is still pending * Continue Rocephin for now (4) Bilateral leg weakness: Code(s): R29.898 - Other symptoms and signs involving the musculoskeletal system Status: Acute Assessment and Plan: 11/23/23: * Likely secondary to prolonged illness * PT and OT ordered * Will get case management involved as well for possible outpatient rehab needs 11/24/23: * Continue with current treatment plan * Case management looking at swing bed at [place] for rehab 11/25/23: * Continue PT and OT * Will discharge to [place] swing bed program when medically stable. (5) Fall: Code(s): W19.XXXA - Unspecified fall, initial encounter Status: Acute Assessment and Plan: 11/23/23: * Patient sustained a ground level fall on Tuesday at her home, patient lives alone, this was reported by the daughter. Daughter states in the last few days she has moved her mother in to her house. * Likely secondary to her increased weakness and prolonged illness * PT and OT ordered * Will get case management involved as well for possible outpatient rehab needs 11/24/23: * Continue current treatment plan 11/25/23: * Continue current treatment plan Time Spent With Patient Time with patient: 25 - 35 minutes Subjective Date/time seen: 11/25/23 07:07 Interval history: 11/23/23: This is an 88 year old female with a significant past medical history of multiple myeloma with mets to bone, neuropathy, pulmonary embolism, hysterectomy, appendectomy, RCR who presented to the hospital with weakness and dry cough for the past few days. Work up in the hospital included a chest x-ray that was negative for any acute cardiopulmonary disease. Labs were essentially normal? exce
--- NOTE | 2023-11-25 07:07 | PM.IMPN ---
Progress Note: A&P Assessment and Plan (1) Acute respiratory failure with hypoxia: Code(s): J96.01 - Acute respiratory failure with hypoxia Status: Acute Assessment and Plan: 11/23/23: Patient found to be hypoxic on arrival to the ER with O2 sat around 88-89% Patient currently on 2 L nasal cannula Wean to keep O2 sat greater than 92% Chest x-ray was negative for any acute cardiopulmonary disease Continue albuterol and Symbicort inhalers Blood cultures are obtained and are pending 11/24/23: Blood cultures showing no growth on preliminary Continue with current treatment plan 11/25/23: Blood cultures showing no growth day 2 Now on room air Continue with current treatment plan. (2) Bronchitis: Code(s): J40 - Bronchitis, not specified as acute or chronic Status: Acute Assessment and Plan: 11/23/23: Patient reports dry cough, no congestion, no postnasal drip She was seen outpatient by her primary care physician who ordered Singulair Will give a 1 time dose 60 mg of Solu-Medrol and start patient on 40 mg b.i.d. Will increase her dose of Tessalon Perles to 200 mg t.i.d. Will start patient on Robitussin 10 ml p.r.n. for cough Continue to wean O2 for sat greater than 92% 11/24/23: Continue with current treatment plan 11/25/23: Currently on room air Continue with current treatment plan (3) Urinary tract infection: Code(s): N39.0 - Urinary tract infection, site not specified Status: Acute Assessment and Plan: 11/23/23: UA showing positive nitrates, 2+ leukocytes, 3+ bacteria Spoke with lab and they will send the UA for culture Start patient on Rocephin IV for now until we get final read on culture 11/24/23: UC pending Continue Rocephin for now 11/25/23: UC is still pending Continue Rocephin for now (4) Bilateral leg weakness: Code(s): R29.898 - Other symptoms and signs involving the musculoskeletal system Status: Acute Assessment and Plan: 11/23/23: Likely secondary to prolonged illness PT and OT ordered Will get case management involved as well for possible outpatient rehab needs 11/24/23: Continue with current treatment plan Case management looking at [facility] bed at [place] for rehab 11/25/23: Continue PT and OT Will discharge to [facility] bed program when medically stable. (5) Fall: Code(s): W19.XXXA - Unspecified fall, initial encounter Status: Acute Assessment and Plan: 11/23/23: Patient sustained a ground level fall on Tuesday at her home, patient lives alone, this was reported by the daughter. Daughter states in the last few days she has moved her mother in to her house. Likely secondary to her increased weakness and prolonged illness PT and OT ordered Will get case management involved as well for possible outpatient rehab needs 11/24/23: Continue current treatment plan 11/25/23: Continue current treatment plan Time Spent With Patient Time with patient: 25 - 35 minutes Subjective Date/time seen: 11/25/23 07:07 Interval history: 11/23/23: This is an 88 year old female with a significant past medical history of multiple myeloma with mets to bone, neuropathy, pulmonary embolism, hysterectomy, appendectomy, RCR who presented to the hospital with weakness and dry cough for the past few days. Work up in the hospital included a chest x-ray that was negative for any acute cardiopulmonary disease. Labs were essentially normal? except for hgb 10.3, Hct 32.8. UA shown positive nitrates,2+ leukocytes, 3+ bacteria. Blood cultures obtained and are pending. Spoke with lab today and they will send UA for culture.? Respiratory panel was negative for influenza, RSV, COVID.? On examination today patient is alert to voice oriented x3 lying in the bed.? Daughter is at the bedside.? Daughter states that her mother has not felt well for quite some time and has gotten worse in the last 2 weeks with increase
[2023-11-25 07:38] LABS: Hypochromasia 2+ (NORMAL)
[2023-11-25 07:39] LABS: Anisocytosis 1+ (NORMAL); Schistocytes None Seen (NORMAL)
[2023-11-25] MEDS: BENZONATATE 100 MG CAPSULE 200 MG PO ×3 (08:25→17:25)
[2023-11-25] MEDS: CHOLECALCIFEROL 1,000 UNITS TABLET 4000 UNITS PO (08:25)
[2023-11-25] MEDS: FERROUS SULFATE 325 MG TABLET DR PO (08:25)
[2023-11-25] MEDS: MONTELUKAST SODIUM 10 MG TABLET PO (08:25)
[2023-11-25] MEDS: GABAPENTIN 100 MG CAPSULE PO (08:25)
[2023-11-25] MEDS: CALCIUM CARBONATE (OSCAL) 500 MG TABLET PO ×2 (08:26→17:24)
[2023-11-25] MEDS: ZINC SULFATE 220 MG CAPSULE PO ×2 (08:26→17:25)
[2023-11-25] MEDS: MULTIVITAMINS THERAPEUTIC TAB (*BKC) 1 TABLET PO (08:26)
[2023-11-25] MEDS: FLUoxetine HCL 10 MG CAPSULE PO (08:26)
[2023-11-25] MEDS: methylPREDNISolone SOD SUCC 40 MG VIAL IV PUSH ×2 (08:29→20:32)
[2023-11-25] MEDS: FLUTICASONE/SALMETEROL 115-21 MCG INHALER 1 PUFF 2 PUFF INHALATION ×2 (09:23→20:17)
--- NOTE | 2023-11-25 11:15 | PCNFU ---
Nutrition Follow-Up Complete: Unintended weight loss as related to bronchitis as evidenced by weight loss of 5% (10 ibs) in the past 1 month. goal: Adequate Intake of at least 75% of meals/supplements Patient is progressing towards goal. We will continue current goal. Pt current nutrition is Regular Last recorded weight is 78.5 kg. Bowel Motility: +Bm reported 11/24 Labs Reviewed:Glu 139, Alb 2.8,Hct 27.4,Hgb 8.1 Meds Noted:Zinc,Vit D, Ferrous Sulfate, Solu Medrol, MVI Skin: WNL Additional Notes: Patient is tolerating a regular diet, at least 50% of meals. She is drinking diet supplement of ensure compact BID providing an additional 220 kcals and 9 gms protein. Agree with diet orders. RD will monitor, weight, labs, skin, meds, oral intake every 5 days.
[2023-11-25] MEDS: SODIUM CHLORIDE 0.9% IV 1,000 ML 75 ML IV CONT (14:56)
[2023-11-25] MEDS: guaiFENesin/DEXTROMETHORPHAN 10 ML UDC PO ×2 (14:56→20:39)
[2023-11-25] MEDS: traZODone HCL 50 MG TABLET PO (20:39)
[2023-11-26] VITALS (8 sets, daily range): BP systolic 137–142; BP diastolic 51–69; PULSE 54–67; RESP 14–20; TEMP 36.2–37.1; O2SAT 93–96
[2023-11-26] MEDS: SODIUM CHLORIDE 0.9% IV 1,000 ML 75 ML IV CONT (03:53)
[2023-11-26] MEDS: guaiFENesin/DEXTROMETHORPHAN 10 ML UDC PO ×3 (05:12→20:14)
[2023-11-26 05:40] LABS: Basophils Percent Auto 0.2 % (0.2-1.2); Immature Granulocyte Absolute 0.06 K/mm3 (0.00-0.031); Immature Granulocyte Percent A 1.3 % (0-0.5); Lymphocytes Absolute Auto 0.46 K/mm3 (0.9-3.2); Mean Corpuscular Hemoglobin 31.3 pg (26-34); Mean Corpuscular Volume 100.7 fl (80-100); Mean Platelet Volume 11.5 fl (7.4-10.4); Monocytes Absolute Auto 0.5 K/mm3 (0.1-0.6); Monocytes Percent Auto 10.4 % (2.6-8.5); Neutrophils Absolute Auto 3.6 K/mm3 (1.3-6.7); Neutrophils Percent Auto 78.1 % (45.5-73.1); Platelet Count Result 149 k/mm3 (150-375); Red Blood Count 2.88 M/mm3 (4.2-5.4); Red Cell Distribution Width 18.9 % (11.5-14.5); White Blood Count 4.6 K/mm3 (4.5-10.0)
[2023-11-26 05:54] LABS: Alanine Aminotransferase 190 U/L (6-35); Albumin Level 2.8 g/dL (3.5-5.1); Alkaline Phosphatase 104 U/L (38-126); Anion Gap 5 mmol/L (8-16); Aspartate Amino Transferase 153 U/L (14-36); Bilirubin,Total 0.5 mg/dL (0.2-1.3); Blood Urea Nitrogen 19 mg/dL (7-17); Calcium 7.2 mg/dL (8.4-10.2); Carbon Dioxide 25 mmol/L (22-30); Chloride 110 mmol/L (98-107); Estimated CRCL calculation 47 ml/min; Estimated Glomerular Filt Rate > 60; Glucose 130 mg/dL (65-110); Potassium 4.4 mmol/L (3.4-5.0); Sodium 140 mmol/L (137-145)
--- NOTE | 2023-11-26 07:04 | PM.DS ---
DS: Admitting Diagnosis Discharge Date 11/28/23 Admitting Diagnosis Acute respiratory failure with hypoxia Acute bronchitis UTI bilateral leg weakness fall DS: Discharge Diagnosis Discharge Diagnosis (1) Acute respiratory failure with hypoxia: Code(s): J96.01 - Acute respiratory failure with hypoxia Status: Acute (2) Bronchitis: Code(s): J40 - Bronchitis, not specified as acute or chronic Status: Acute (3) Urinary tract infection: Code(s): N39.0 - Urinary tract infection, site not specified Status: Acute (4) Bilateral leg weakness: Code(s): R29.898 - Other symptoms and signs involving the musculoskeletal system Status: Acute (5) Fall: Code(s): W19.XXXA - Unspecified fall, initial encounter Status: Acute DS: Summary Hospital Course Reason for hospitalization: Acute respiratory failure with hypoxia Acute bronchitis Fall Hospital Course: This is an 88 year old female with a significant past medical history of multiple myeloma with mets to bone, neuropathy, pulmonary embolism, hysterectomy, appendectomy, RCR who presented to the hospital with weakness and dry cough for the past few days. Work up in the hospital included a chest x-ray that was negative for any acute cardiopulmonary disease. Labs were essentially normal? except for hgb 10.3, Hct 32.8. UA shown positive nitrates,2+ leukocytes, 3+ bacteria. Blood and urine cultures were obtained. Blood culture showing no growth to date on preliminary, UC negative for UTI. Patient was on IV Rocephin since admission, now discontinued. Respiratory panel was negative for influenza, RSV, COVID.?Patient received breathing treatments, IV steroids, and cough medications while inpatient. On examination today patient is alert and oriented x3, sitting in the chair. VSS, she is afebrile, currently on room air. She denies any new complaints today. She did have a few days were her liver enzymes were elevated. US of abdomen revealed a normal liver function and hepatic flow. The elevation in her liver enzymes is likely caused by the use of Rocephin. Labs today are essentially unremarkable and liver enzymes are now trending downward. Patient has been working with PT/OT and has been ambulating well in the halls. VSS, she is afebrile, and currently on room air. She denies any new complaints today and states that she is feeling much better. Her coughing spells have been less. Patient is stable for discharge to home today. She will need to follow up with her PCP in 1 week. Final diagnosis: Acute respiratory failure with hypoxia, acute bronchitis, fall Status at Discharge Cognitive/behavioral status at discharge: Alert and oriented x3 Functional status at discharge: uses cane/walker Overall status at discharge: patient is progressing back to baseline Time Spent with Patient Time attestation: Total time spent providing and/or coordinating discharge services: Time spent: Greater than 30 minutes Exam Narrative: General: In no acute distress, well nourished Head: atraumatic, no encephalopathy Eyes: EOMI, PERRLA, sclera clear ENT: moist mucous membranes, nasal passages clear Neck: supple, no JVD, no adenopathy, trachea midline Cardiac: Normal S1 and S2. RRR, No murmur, gallops or friction rubs, peripheral pulses intact. Respiratory: Lungs clear to auscultation, no adventitious lung sounds, no acute respiratory distress, currently on room air. She still reports a slight cough however this is much improved. Gastrointestinal: soft, non-distended, non-tender, normoactive bowel sounds. : voiding without difficulty. Extremities: moves all extremities well, no edema Skin: band-aid noted to left elbow Neuro: Alert to voice and oriented x3, cranial nerves intact, no neuro deficits. Following commands and answers questions appropriately. Psych: normal mood, normal affect, interactive DS: Data Data Completed and Pending Completed studies during hosp
[2023-11-26 08:00] LABS: Hepatitis B Surface Antigen Negative (Negative)
[2023-11-26 08:06] LABS: HAV RESULT Negative (Negative); Hepatitis B Core IgM Result Negative (Negative)
[2023-11-26] MEDS: ALBUTEROL SULFATE NEB 2.5 MG/3 ML INH INHALATION ×2 (08:07→20:44)
[2023-11-26] MEDS: IPRATROPIUM BR 0.02% INH SOLN 0.5 MG/2.5 ML VIAL INHALATION ×2 (08:07→20:44)
[2023-11-26] MEDS: FLUTICASONE/SALMETEROL 115-21 MCG INHALER 1 PUFF 2 PUFF INHALATION ×2 (08:07→20:47)
[2023-11-26 08:18] LABS: Hepatitis C Virus Antibody Negative (Negative)
[2023-11-26] MEDS: CHOLECALCIFEROL 1,000 UNITS TABLET 4000 UNITS PO (09:14)
[2023-11-26] MEDS: BENZONATATE 100 MG CAPSULE 200 MG PO ×2 (09:14→16:21)
[2023-11-26] MEDS: methylPREDNISolone SOD SUCC 40 MG VIAL IV PUSH ×2 (09:15→20:13)
[2023-11-26] MEDS: FERROUS SULFATE 325 MG TABLET DR PO (09:15)
[2023-11-26] MEDS: FLUoxetine HCL 10 MG CAPSULE PO (09:15)
[2023-11-26] MEDS: MULTIVITAMINS THERAPEUTIC TAB (*BKC) 1 TABLET PO (09:15)
[2023-11-26] MEDS: GABAPENTIN 100 MG CAPSULE PO (09:15)
[2023-11-26] MEDS: CALCIUM CARBONATE (OSCAL) 500 MG TABLET PO ×2 (09:15→16:21)
[2023-11-26] MEDS: ZINC SULFATE 220 MG CAPSULE PO ×2 (09:15→16:21)
[2023-11-26] MEDS: MONTELUKAST SODIUM 10 MG TABLET PO (09:16)
--- NOTE | 2023-11-26 13:53 | PM.IMPN ---
Progress Note: A&P Assessment and Plan (1) Acute respiratory failure with hypoxia: Code(s): J96.01 - Acute respiratory failure with hypoxia Status: Acute Assessment and Plan: 11/23/23: Patient found to be hypoxic on arrival to the ER with O2 sat around 88-89% Patient currently on 2 L nasal cannula Wean to keep O2 sat greater than 92% Chest x-ray was negative for any acute cardiopulmonary disease Continue albuterol and Symbicort inhalers Blood cultures are obtained and are pending 11/24/23: Blood cultures showing no growth on preliminary Continue with current treatment plan 11/25/23: Blood cultures showing no growth day 2 Now on room air Continue with current treatment plan. 11/26/23: Blood culture showing no growth a 3 Continue with current treatment plan (2) Bronchitis: Code(s): J40 - Bronchitis, not specified as acute or chronic Status: Acute Assessment and Plan: 11/23/23: Patient reports dry cough, no congestion, no postnasal drip She was seen outpatient by her primary care physician who ordered Singulair Will give a 1 time dose 60 mg of Solu-Medrol and start patient on 40 mg b.i.d. Will increase her dose of Tessalon Perles to 200 mg t.i.d. Will start patient on Robitussin 10 ml p.r.n. for cough Continue to wean O2 for sat greater than 92% 11/24/23: Continue with current treatment plan 11/25/23: Currently on room air Continue with current treatment plan 11/26/23: Currently on room air Continue with current treatment plan Added cough drops PRN (3) Urinary tract infection: Code(s): N39.0 - Urinary tract infection, site not specified Status: Acute Assessment and Plan: 11/23/23: UA showing positive nitrates, 2+ leukocytes, 3+ bacteria Spoke with lab and they will send the UA for culture Start patient on Rocephin IV for now until we get final read on culture 11/24/23: UC pending Continue Rocephin for now 11/25/23: UC is still pending Continue Rocephin for now 11/26/23: Urine culture came back negative on final read Rocephin stopped. Liver enzymes were slightly elevated today likely due to Rocephin use Ultrasound of liver normal Hepatic panel negative (4) Bilateral leg weakness: Code(s): R29.898 - Other symptoms and signs involving the musculoskeletal system Status: Acute Assessment and Plan: 11/23/23: Likely secondary to prolonged illness PT and OT ordered Will get case management involved as well for possible outpatient rehab needs 11/24/23: Continue with current treatment plan Case management looking at swing bed at [place] for rehab 11/25/23: Continue PT and OT Will discharge to [place] swing bed program when medically stable. 11/26/23: No change to current treatment plan Still awaiting authorization for a [place] swing [facility] program (5) Fall: Code(s): W19.XXXA - Unspecified fall, initial encounter Status: Acute Assessment and Plan: 11/23/23: Patient sustained a ground level fall on Tuesday at her home, patient lives alone, this was reported by the daughter. Daughter states in the last few days she has moved her mother in to her house. Likely secondary to her increased weakness and prolonged illness PT and OT ordered Will get case management involved as well for possible outpatient rehab needs 11/24/23: Continue current treatment plan 11/25/23: Continue current treatment plan 11/26/23: Continue with current treatment plan Time Spent With Patient Time with patient: 25 - 35 minutes Subjective Date/time seen: 11/26/23 13:53 Interval history: 11/23/23: This is an 88 year old female with a significant past medical history of multiple myeloma with mets to bone, neuropathy, pulmonary embolism, hysterectomy, appendectomy, RCR who presented to the hospital with weakness and dry cough for the past few days. Work up in the hospital included a chest x-ray that wa
--- NOTE | 2023-11-26 13:53 | P.PNIM_ITS ---
Progress Note: A&P Assessment and Plan (1) Acute respiratory failure with hypoxia: Code(s): J96.01 - Acute respiratory failure with hypoxia Status: Acute Assessment and Plan: 11/23/23: * Patient found to be hypoxic on arrival to the ER with O2 sat around 88-89% * Patient currently on 2 L nasal cannula * Wean to keep O2 sat greater than 92% * Chest x-ray was negative for any acute cardiopulmonary disease * Continue albuterol and Symbicort inhalers * Blood cultures are obtained and are pending 11/24/23: * Blood cultures showing no growth on preliminary * Continue with current treatment plan 11/25/23: * Blood cultures showing no growth day 2 * Now on room air * Continue with current treatment plan. 11/26/23: * Blood culture showing no growth a 3 * Continue with current treatment plan (2) Bronchitis: Code(s): J40 - Bronchitis, not specified as acute or chronic Status: Acute Assessment and Plan: 11/23/23: * Patient reports dry cough, no congestion, no postnasal drip * She was seen outpatient by her primary care physician who ordered Singulair * Will give a 1 time dose 60 mg of Solu-Medrol and start patient on 40 mg b.i.d. * Will increase her dose of Tessalon Perles to 200 mg t.i.d. * Will start patient on Robitussin 10 ml p.r.n. for cough * Continue to wean O2 for sat greater than 92% 11/24/23: * Continue with current treatment plan 11/25/23: * Currently on room air * Continue with current treatment plan 11/26/23: * Currently on room air * Continue with current treatment plan * Added cough drops PRN (3) Urinary tract infection: Code(s): N39.0 - Urinary tract infection, site not specified Status: Acute Assessment and Plan: 11/23/23: * UA showing positive nitrates, 2+ leukocytes, 3+ bacteria * Spoke with lab and they will send the UA for culture * Start patient on Rocephin IV for now until we get final read on culture 11/24/23: * UC pending * Continue Rocephin for now 11/25/23: * UC is still pending * Continue Rocephin for now 11/26/23: * Urine culture came back negative on final read * Rocephin stopped. * Liver enzymes were slightly elevated today likely due to Rocephin use * Ultrasound of liver normal * Hepatic panel negative (4) Bilateral leg weakness: Code(s): R29.898 - Other symptoms and signs involving the musculoskeletal system Status: Acute Assessment and Plan: 11/23/23: * Likely secondary to prolonged illness * PT and OT ordered * Will get case management involved as well for possible outpatient rehab needs 11/24/23: * Continue with current treatment plan * Case management looking at swing bed at [place] for rehab 11/25/23: * Continue PT and OT * Will discharge to [place] swing bed program when medically stable. 11/26/23: * No change to current treatment plan * Still awaiting authorization for a [facility] swing bed program (5) Fall: Code(s): W19.XXXA - Unspecified fall, initial encounter Status: Acute Assessment and Plan: 11/23/23: * Patient sustained a ground level fall on Tuesday at her home, patient lives alone, this was reported by the daughter. Daughter states in the last few days she has moved her mother in to her house. * Likely secondary to her increased weakness and prolonged illness * PT and OT ordered * Will get case management involved as well for possible outpatient rehab needs 11/24/23: * Continue current treatment plan 11/25/23: * Continue current treatment p
[2023-11-26] MEDS: BENZOCAINE/MENTHOL (*BKC) 18 EA LOZENGE 1 LOZENGE PO (16:25)
[2023-11-26] MEDS: traZODone HCL 50 MG TABLET PO (20:13)
[2023-11-27] VITALS (13 sets, daily range): BP systolic 123–143; BP diastolic 52–57; PULSE 48–69; RESP 16–20; TEMP 36.4–37.1; O2SAT 92–97
[2023-11-27] MEDS: IPRATROPIUM BR 0.02% INH SOLN 0.5 MG/2.5 ML VIAL INHALATION ×4 (01:13→19:58)
[2023-11-27] MEDS: ALBUTEROL SULFATE NEB 2.5 MG/3 ML INH INHALATION ×4 (01:13→19:57)
[2023-11-27 05:16] LABS: Basophils Percent Auto 0.2 % (0.2-1.2); Hemoglobin 9.2 g/dL (12.0-15.0); Immature Granulocyte Absolute 0.08 K/mm3 (0.00-0.031); Immature Granulocyte Percent A 1.6 % (0-0.5); Lymphocytes Absolute Auto 0.64 K/mm3 (0.9-3.2); Lymphocytes Percent Auto 13.1 % (18.3-44.2); Mean Corpuscular HGB Conc 30.7 g/dl (32-36); Mean Corpuscular Hemoglobin 31.4 pg (26-34); Mean Corpuscular Volume 102.4 fl (80-100); Mean Platelet Volume 11.3 fl (7.4-10.4); Monocytes Absolute Auto 0.6 K/mm3 (0.1-0.6); Monocytes Percent Auto 12.4 % (2.6-8.5); Neutrophils Absolute Auto 3.6 K/mm3 (1.3-6.7); Neutrophils Percent Auto 72.7 % (45.5-73.1); Platelet Count Result 155 k/mm3 (150-375); Red Blood Count 2.93 M/mm3 (4.2-5.4); White Blood Count 4.9 K/mm3 (4.5-10.0)
[2023-11-27 05:29] LABS: Alanine Aminotransferase 226 U/L (6-35); Alkaline Phosphatase 106 U/L (38-126); Anion Gap 4 mmol/L (8-16); Aspartate Amino Transferase 124 U/L (14-36); Bilirubin,Total 0.5 mg/dL (0.2-1.3); Blood Urea Nitrogen 21 mg/dL (7-17); Calcium 7.7 mg/dL (8.4-10.2); Carbon Dioxide 28 mmol/L (22-30); Chloride 107 mmol/L (98-107); Estimated CRCL calculation 42 ml/min; Estimated Glomerular Filt Rate > 60; Glucose 122 mg/dL (65-110); Potassium 4.3 mmol/L (3.4-5.0); Sodium 139 mmol/L (137-145)
[2023-11-27] MEDS: FLUTICASONE/SALMETEROL 115-21 MCG INHALER 1 PUFF 2 PUFF INHALATION ×2 (07:51→19:58)
--- NOTE | 2023-11-27 08:58 | P.PNIM_ITS ---
Progress Note: A&P Assessment and Plan (1) Acute respiratory failure with hypoxia: Code(s): J96.01 - Acute respiratory failure with hypoxia Status: Acute Assessment and Plan: 11/23/23: * Patient found to be hypoxic on arrival to the ER with O2 sat around 88-89% * Patient currently on 2 L nasal cannula * Wean to keep O2 sat greater than 92% * Chest x-ray was negative for any acute cardiopulmonary disease * Continue albuterol and Symbicort inhalers * Blood cultures are obtained and are pending 11/24/23: * Blood cultures showing no growth on preliminary * Continue with current treatment plan 11/25/23: * Blood cultures showing no growth day 2 * Now on room air * Continue with current treatment plan. 11/26/23: * Blood culture showing no growth a 3 * Continue with current treatment plan 11/27/23: * Blood cultures showing no growth day 4 on preliminary * Continue with current treatment plan. (2) Bronchitis: Code(s): J40 - Bronchitis, not specified as acute or chronic Status: Acute Assessment and Plan: 11/23/23: * Patient reports dry cough, no congestion, no postnasal drip * She was seen outpatient by her primary care physician who ordered Singulair * Will give a 1 time dose 60 mg of Solu-Medrol and start patient on 40 mg b.i.d. * Will increase her dose of Tessalon Perles to 200 mg t.i.d. * Will start patient on Robitussin 10 ml p.r.n. for cough * Continue to wean O2 for sat greater than 92% 11/24/23: * Continue with current treatment plan 11/25/23: * Currently on room air * Continue with current treatment plan 11/26/23: * Currently on room air * Continue with current treatment plan * Added cough drops PRN 11/27/23: * Continue with current treatment plan (3) Urinary tract infection: Code(s): N39.0 - Urinary tract infection, site not specified Status: Acute Assessment and Plan: 11/23/23: * UA showing positive nitrates, 2+ leukocytes, 3+ bacteria * Spoke with lab and they will send the UA for culture * Start patient on Rocephin IV for now until we get final read on culture 11/24/23: * UC pending * Continue Rocephin for now 11/25/23: * UC is still pending * Continue Rocephin for now 11/26/23: * Urine culture came back negative on final read * Rocephin stopped. * Liver enzymes were slightly elevated today likely due to Rocephin use * Ultrasound of liver normal * Hepatic panel negative 11/27/23: * Liver enzymes AST 124, ALT 226 * Continue to trend lab (4) Bilateral leg weakness: Code(s): R29.898 - Other symptoms and signs involving the musculoskeletal system Status: Acute Assessment and Plan: 11/23/23: * Likely secondary to prolonged illness * PT and OT ordered * Will get case management involved as well for possible outpatient rehab needs 11/24/23: * Continue with current treatment plan * Case management looking at swing bed at [place] for rehab 11/25/23: * Continue PT and OT * Will discharge to [place] swing bed program when medically stable. 11/26/23: * No change to current treatment plan * Still awaiting authorization for a [facility] swing bed program 11/27/23: * No change (5) Fall: Code(s): W19.XXXA - Unspecified fall, initial encounter Status: Acute Assessment and Plan: 11/23/23: * Patient sustained a ground level fall on Tuesday at her home, patient lives alone, this was reported by the daughter. Daughter states in the last few days she has moved her moth
--- NOTE | 2023-11-27 08:58 | PM.IMPN ---
Progress Note: A&P Assessment and Plan (1) Acute respiratory failure with hypoxia: Code(s): J96.01 - Acute respiratory failure with hypoxia Status: Acute Assessment and Plan: 11/23/23: Patient found to be hypoxic on arrival to the ER with O2 sat around 88-89% Patient currently on 2 L nasal cannula Wean to keep O2 sat greater than 92% Chest x-ray was negative for any acute cardiopulmonary disease Continue albuterol and Symbicort inhalers Blood cultures are obtained and are pending 11/24/23: Blood cultures showing no growth on preliminary Continue with current treatment plan 11/25/23: Blood cultures showing no growth day 2 Now on room air Continue with current treatment plan. 11/26/23: Blood culture showing no growth a 3 Continue with current treatment plan 11/27/23: Blood cultures showing no growth day 4 on preliminary Continue with current treatment plan. (2) Bronchitis: Code(s): J40 - Bronchitis, not specified as acute or chronic Status: Acute Assessment and Plan: 11/23/23: Patient reports dry cough, no congestion, no postnasal drip She was seen outpatient by her primary care physician who ordered Singulair Will give a 1 time dose 60 mg of Solu-Medrol and start patient on 40 mg b.i.d. Will increase her dose of Tessalon Perles to 200 mg t.i.d. Will start patient on Robitussin 10 ml p.r.n. for cough Continue to wean O2 for sat greater than 92% 11/24/23: Continue with current treatment plan 11/25/23: Currently on room air Continue with current treatment plan 11/26/23: Currently on room air Continue with current treatment plan Added cough drops PRN 11/27/23: Continue with current treatment plan (3) Urinary tract infection: Code(s): N39.0 - Urinary tract infection, site not specified Status: Acute Assessment and Plan: 11/23/23: UA showing positive nitrates, 2+ leukocytes, 3+ bacteria Spoke with lab and they will send the UA for culture Start patient on Rocephin IV for now until we get final read on culture 11/24/23: UC pending Continue Rocephin for now 11/25/23: UC is still pending Continue Rocephin for now 11/26/23: Urine culture came back negative on final read Rocephin stopped. Liver enzymes were slightly elevated today likely due to Rocephin use Ultrasound of liver normal Hepatic panel negative 11/27/23: Liver enzymes AST 124, ALT 226 Continue to trend lab (4) Bilateral leg weakness: Code(s): R29.898 - Other symptoms and signs involving the musculoskeletal system Status: Acute Assessment and Plan: 11/23/23: Likely secondary to prolonged illness PT and OT ordered Will get case management involved as well for possible outpatient rehab needs 11/24/23: Continue with current treatment plan Case management looking at swing bed at [place] for rehab 11/25/23: Continue PT and OT Will discharge to [place] swing bed program when medically stable. 11/26/23: No change to current treatment plan Still awaiting authorization for a [facility] swing bed program 11/27/23: No change (5) Fall: Code(s): W19.XXXA - Unspecified fall, initial encounter Status: Acute Assessment and Plan: 11/23/23: Patient sustained a ground level fall on Tuesday at her home, patient lives alone, this was reported by the daughter. Daughter states in the last few days she has moved her mother in to her house. Likely secondary to her increased weakness and prolonged illness PT and OT ordered Will get case management involved as well for possible outpatient rehab needs 11/24/23: Continue current treatment plan 11/25/23: Continue current treatment plan 11/26/23: Continue with current treatment plan Time Spent With Patient Time with patient: 15 - 25 minutes Subjective Date/time seen: 11/27/23 08:58 Interval history: 11/23/23: This is an 88 year old female with a significant past me
[2023-11-27] MEDS: MONTELUKAST SODIUM 10 MG TABLET PO (09:08)
[2023-11-27] MEDS: ZINC SULFATE 220 MG CAPSULE PO ×2 (09:08→17:42)
[2023-11-27] MEDS: BENZONATATE 100 MG CAPSULE 200 MG PO ×3 (09:08→17:42)
[2023-11-27] MEDS: CHOLECALCIFEROL 1,000 UNITS TABLET 4000 UNITS PO (09:08)
[2023-11-27] MEDS: MULTIVITAMINS THERAPEUTIC TAB (*BKC) 1 TABLET PO (09:09)
[2023-11-27] MEDS: CALCIUM CARBONATE (OSCAL) 500 MG TABLET PO ×2 (09:09→17:42)
[2023-11-27] MEDS: FERROUS SULFATE 325 MG TABLET DR PO (09:09)
[2023-11-27] MEDS: GABAPENTIN 100 MG CAPSULE PO (09:09)
[2023-11-27] MEDS: FLUoxetine HCL 10 MG CAPSULE PO (09:09)
[2023-11-27] MEDS: methylPREDNISolone SOD SUCC 40 MG VIAL IV PUSH ×2 (09:09→20:38)
[2023-11-27] MEDS: guaiFENesin/DEXTROMETHORPHAN 10 ML UDC PO (17:46)
[2023-11-27] MEDS: traZODone HCL 50 MG TABLET PO (20:38)
[2023-11-28 05:42] LABS: Basophils Percent Auto 0.5 % (0.2-1.2); Hematocrit 30.6 % (37.0-47.0); Hemoglobin 9.7 g/dL (12.0-15.0); Immature Granulocyte Absolute 0.25 K/mm3 (0.00-0.031); Immature Granulocyte Percent A 4.2 % (0-0.5); Lymphocytes Absolute Auto 0.63 K/mm3 (0.9-3.2); Lymphocytes Percent Auto 10.5 % (18.3-44.2); Mean Corpuscular HGB Conc 31.7 g/dl (32-36); Mean Corpuscular Hemoglobin 32.1 pg (26-34); Mean Corpuscular Volume 101.3 fl (80-100); Mean Platelet Volume 11.3 fl (7.4-10.4); Monocytes Absolute Auto 0.8 K/mm3 (0.1-0.6); Monocytes Percent Auto 12.8 % (2.6-8.5); Neutrophils Absolute Auto 4.3 K/mm3 (1.3-6.7); Platelet Count Result 178 k/mm3 (150-375); Red Blood Count 3.02 M/mm3 (4.2-5.4); Red Cell Distribution Width 19.1 % (11.5-14.5)
[2023-11-28 05:49] VITALS: BP 133/52; PULSE 55; RESP 17; TEMP 36.7; O2SAT 100
[2023-11-28 05:57] LABS: Alanine Aminotransferase 199 U/L (6-35); Albumin Level 2.8 g/dL (3.5-5.1); Alkaline Phosphatase 85 U/L (38-126); Anion Gap 6 mmol/L (8-16); Aspartate Amino Transferase 78 U/L (14-36); Bilirubin,Total 0.6 mg/dL (0.2-1.3); Blood Urea Nitrogen 21 mg/dL (7-17); Calcium 8.1 mg/dL (8.4-10.2); Carbon Dioxide 24 mmol/L (22-30); Chloride 106 mmol/L (98-107); Estimated CRCL calculation 47 ml/min; Estimated Glomerular Filt Rate > 60; Glucose 117 mg/dL (65-110); Potassium 4.2 mmol/L (3.4-5.0); Sodium 136 mmol/L (137-145)
[2023-11-28] MEDS: ALBUTEROL SULFATE NEB 2.5 MG/3 ML INH INHALATION (07:38)
[2023-11-28] MEDS: IPRATROPIUM BR 0.02% INH SOLN 0.5 MG/2.5 ML VIAL INHALATION (07:38)
[2023-11-28 07:40] VITALS: PULSE 58; RESP 16; O2SAT 94
[2023-11-28] MEDS: FLUTICASONE/SALMETEROL 115-21 MCG INHALER 1 PUFF 2 PUFF INHALATION (07:41)
[2023-11-28 07:52] VITALS: PULSE 60; RESP 16
[2023-11-28] MEDS: CALCIUM CARBONATE (OSCAL) 500 MG TABLET PO (08:19)
[2023-11-28] MEDS: GABAPENTIN 100 MG CAPSULE PO (08:19)
[2023-11-28] MEDS: ZINC SULFATE 220 MG CAPSULE PO (08:19)
[2023-11-28] MEDS: FLUoxetine HCL 10 MG CAPSULE PO (08:19)
[2023-11-28] MEDS: FERROUS SULFATE 325 MG TABLET DR PO (08:19)
[2023-11-28] MEDS: MULTIVITAMINS THERAPEUTIC TAB (*BKC) 1 TABLET PO (08:19)
[2023-11-28] MEDS: MONTELUKAST SODIUM 10 MG TABLET PO (08:19)
[2023-11-28] MEDS: CHOLECALCIFEROL 1,000 UNITS TABLET 4000 UNITS PO (08:20)
[2023-11-28] MEDS: BENZONATATE 100 MG CAPSULE 200 MG PO ×2 (08:20→13:22)
[2023-11-28] MEDS: methylPREDNISolone SOD SUCC 40 MG VIAL IV PUSH (08:20)
[2023-11-28] MEDS: guaiFENesin/DEXTROMETHORPHAN 10 ML UDC PO (13:25)
[2023-11-28 14:00] VITALS: BP 155/59; PULSE 60; RESP 15; TEMP 36.6; O2SAT 100
[2023-11-28 14:39] VITALS: PULSE 59; RESP 16
[2023-11-28] MEDS: IPRATROPIUM 0.5 MG/ALBUTEROL SULFATE 2.5 MG AMPUL.NEB 3 ML INHALATION (14:39)
[2023-11-28 14:48] VITALS: PULSE 59; RESP 20
== END 2023-11-28 15:55 | disposition home or self-care (01) | DRG 202 ==
LOC: ANHED 08:23 → ANH2MED 09:05
PROVIDERS: Emergency Medicine; Admitting Provider Student in an Organized Health Care Education/Training Program; Emergency Provider Family Medicine; PCP Family Medicine; Visit Provider Nurse Practitioner Acute Care
DX: J40 Bronchitis, not specified as acute or chronic (principal); N39.0 Urinary tract infection, site not specified; G62.0 Drug-induced polyneuropathy; R29.898 Other symptoms and signs involving the musculoskeletal system; R74.8 Abnormal levels of other serum enzymes; Z20.822 Contact with and (suspected) exposure to COVID-19; W19.XXXA Unspecified fall, initial encounter; T45.1X5S Adverse effect of antineoplastic and immunosuppressive drugs, sequela; Z85.79 Personal history of other malignant neoplasms of lymphoid, hematopoietic and related tissues; Z86.711 Personal history of pulmonary embolism
CPT/HCPCS: 36415; 71046; 76705; 80053; 80074; 81001; 83735; 84100; 84145; 85025; 85055; 87040; 87086; 87088; 87637; 93005; 94640; 97110; 97161; 97165; 97530; 97535; 99285; A9270; J0696; J2920; J2930; J7030

== ENCOUNTER 2024-10-31 15:46 | Outpatient (CLI) | payer MEDICARE, SELFPAY ==
--- NOTE | ~2024-10-31 | XR_ITS ---
EXAMINATION: XR shoulder LT min 2V DATE: 10/31/2024 16:03 INDICATION: Left shoulder pain. TECHNIQUE: 4 views of left shoulder were obtained. COMPARISON: None. FINDINGS: Alignment is normal. No fracture. There are likely changes of distal clavicle resection. Th ere is mild glenohumeral joint osteoarthritis. There is a loose body in the subacromial/subdeltoid bu rsa. There is mild calcific tendinitis of the rotator cuff. IMPRESSION: 1. Mild glenohumeral joint osteoarthritis. 2. Loose body in the subacromial/subdeltoid bursa. 3. Mild calcific tendinitis of the rotator cuff. Reviewed, dictated and finalized at location A. TABLE HANDLER
--- NOTE | ~2024-10-31 | XR_ITS ---
EXAMINATION: XR scapula LT DATE: 10/31/2024 16:03 INDICATION: Left shoulder pain. TECHNIQUE: 2 views of left scapula were obtained. COMPARISON: None. FINDINGS: Alignment is normal. No fracture. There are likely changes of distal clavicle resection. Th ere is mild glenohumeral joint osteoarthritis. There is a loose body in the subacromial/subdeltoid bu rsa. IMPRESSION: 1. Mild glenohumeral joint osteoarthritis. 2. Loose body in the subacromial/subdeltoid bursa. Reviewed, dictated and finalized at location A. GE MANAGEMENT ADMINISTRATOR
== END 2024-10-31 15:47 | disposition home or self-care (01) ==
LOC: MICIMG 15:47
PROVIDERS: PCP Internal Medicine Hematology & Oncology; Visit Provider Family Medicine
DX: M19.012 Primary osteoarthritis, left shoulder (principal); M75.32 Calcific tendinitis of left shoulder; M24.012 Loose body in left shoulder
CPT/HCPCS: 73010; 73030

== ENCOUNTER 2025-01-11 21:01 | Emergency (ER) | payer MEDICARE, SELFPAY ==
[2025-01-11 21:05] VITALS: BP 128/46; PULSE 76; RESP 20; TEMP 36.8; O2SAT 97
[2025-01-12 00:18] VITALS: BP 118/58; PULSE 71; RESP 16; TEMP 38.2; O2SAT 93
[2025-01-12 00:19] VITALS: O2SAT 94
[2025-01-12 00:56] LABS: Influenza A QL RT-PCR Positive (Negative); Influenza B QL RT-PCR Negative (Negative); RSV RNA, RT-PCR Negative (Negative); SARS-CoV-2 RNA PCR Negative (Negative)
--- NOTE | 2025-01-12 01:09 | ED.URI ---
HPI - URI/Sore Throat General Chief Complaint: Upper Respiratory Infection Stated Complaint: n/v Time Seen by Provider: 01/11/25 23:58 History of Present Illness HPI Narrative: Patient is an 89-year-old female who presents to the ER with a 2 day history of fever, chills, decreased oral intake, productive cough, emesis, shortness of breath, mild headache, and a couple falls. She endorses a history of multiple myeloma, which was diagnosed approximately 7 years ago, asthma, and chronic UTIs. Patient denies chest pain, abdominal pain, urinary symptoms, back pain. She reports her daughter became sick with similar symptoms approximately 3 days ago. Related Data Home Medications ?Medication ?Instructions ?Recorded ?Confirmed ?Last Taken ?Type multivitamin 1 tablet PO DAILY 09/03/19 12/12/24 09/16/19 History zinc amino acid chelate 50 mg 1 mg PO BID 09/03/19 12/12/24 09/16/19 20:00 History tablet antiarthritic combination no.2 900 1 mg PO BID 04/14/21 12/12/24 Unknown History mg tablet (glucosamine-chondroitin) calcium carbonate (Calcium 600) 600 mg PO BID 04/14/21 12/12/24 Unknown History gabapentin 100 mg capsule 100 mg PO DAILY 04/14/21 12/12/24 Unknown History (Neurontin) cholecalciferol (vitamin D3) 50 100 mcg PO DAILY 03/18/22 12/12/24 Unknown History mcg (2,000 unit) tablet Previgen 1 tab-cap PO DAILY 01/31/23 12/12/24 Unknown History methenamine 81 mg-m.blue 10.8 1 tablet PO DAILY PRN urinary 11/23/23 12/12/24 Unknown History mg-sod phos 40.8 mg-p.salicy-hyos discomfort tablet (Urelle) Allergies Allergy/AdvReac Type Severity Reaction Status Date / Time morphine Allergy Mild HICCUPS Verified 01/11/25 21:09 chlorpromazine Allergy Unknown Not Verified 01/11/25 21:09 Entered,Unknown nalbuphine Allergy Unknown Not Verified 01/11/25 21:09 Entered,Unknown nitrofurantoin Allergy Unknown Unknown Verified 01/11/25 21:09 prochlorperazine Allergy Unknown Not Verified 01/11/25 21:09 Entered,Unknown NITRATE Allergy Unknown Unknown Uncoded 01/07/25 14:15 Review of Systems Review of Systems: All systems reviewed & are unremarkable except as noted in HPI and below PMFSH Past Medical History Medical History (Updated 01/12/25 @ 04:25 by Isabel Manzano APRN) Bone metastasis Arsenic poisoning 15 years ago Pulmonary embolism Bilateral lungs 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 Multiple myeloma Initially with brain tumor found 1.5 years ago, then returned at the bottom of her tailbone this past spring (2018). PET scan 2-3 weeks ago came back all okay Surgical History Surgical History S/P rotator cuff repair H/O: hysterectomy History of appendectomy Family History Family History Sibling Diabetes mellitus Patient's sister is in good health Mother Family history of anemia Carcinoma of colon Father Family history of cardiovascular disease Abdominal aortic aneurysm Daughter Lyme disease Social History Social History Social History: The patient lives at home by herself and has stairs up to her room. She has a Rollator and cane at home if needed but usually walks independently. Smoking status: Never smoker Second hand tobacco smoke exposure: No Alcohol intake: current Alcohol use details: wine socially Substance use: never Substance use type: does not use Do You Feel Safe in your Home?: Yes Lack of Transportation: No Lack of Food: Never True Current Housing: I Have Housing Concerned About Future Housing: No Difficulty Paying Gas/Electric Bills: No Difficulty Paying for Meds: No Currently Unemployed: No Education: Bachelor's Degree Difficulty w/ Childcare or Family Care: No Living arrangements: alone Gender identity (if verbalized by the patient): Female Spiritual care concerns: No Agree to blood products: Yes Exam Narrative: GENERAL: Ill-appearing, well-nourished, non-toxic, in no acute distress. HEAD: Normocephalic, atraumatic. NECK: Supple. No adenopathy, no masses. RESPIRATORY: Airway patent, respirations labored with exertion. Clear to auscultation bilaterally, no rales, rhonchi, wheezing. CARDIOVASCULAR: Regular rate and rhythm without murmurs, rubs, or gallops. Peripheral pulses 2+ and equal bilaterally. ABDOMINAL: Soft, nontender, nondistended, no hepatosplenomegaly. Normoactive BS. MUSCULOSKELETAL: Moves all extremities. Strength/ROM intact without gross deformities. SKIN: Hot to the touch, dry, normal color. No rashes. NEURO: A&O X3. Speech clear. No ataxic movements. PSYCHIATRIC: Appropriate mood and affect. Normal interaction. Course Vital Signs Vital signs: Vital Signs Temperature 36.8 C 01/11/25 21:05 Pulse Rate 76 01/11/25 21:05 Respiratory Rate 20 01/11/25 21:05 Blood Pressure 128/46 L 01/11/25 21:05 Pulse Oximetry 97 01/11/25 21:05 Oxygen Delivery Room Air 01/11/25 21:05 Temperature 37.3 C 01/12/25 02:57 Pulse Rate 76 01/12/25 02:57 Respiratory Rate 18 01/12/25 02:57 Blood Pressure 141/60 H 01/12/25 02:57 Pulse Oximetry 93 01/12/25 02:57 Oxygen Delivery Room Air 01/12/25 00:19 MDM - URI/Sore Throat MDM Narrative Medical decision making narrative: Patient is an 89-year-old female who presents to the ER with a 2 day history of fever, chills, decreased oral intake, productive cough, emesis, shortness of breath, mild headache, and a couple falls. She endorses a history of multiple myeloma, which was diagnosed approximately 7 years ago, asthma, and chronic UTIs. Patient denies chest pain, abdominal pain, urinary symptoms, back pain. Her daughter reports she has chronic UTIs and takes Privigen. Labs Ordered: CBC, CMP, troponin, INR, APTT, BMP, magnesium, lactic acid, D-dimer, urinalysis Imaging Ordered: CT PE scan Medications Ordered: 1 L normal saline IV bolus, Toradol 15mg IV, Decadron 10mg IV, Ceftriaxone 500mg IV (UTI) Results: Pt's urinalysis is positive for a UTI. PT's CTA PE scan indicates no acute abnormalities. Diagnosis: Influenza a, upper respiratory infection, acute UTI (urinalysis results vary from previous results) Risks: CURB-65 Score for Pneumonia Severity from [email or web address] on 01/12/2025 All calculations should be rechecked by clinician prior to use RESULT SUMMARY: 1 points Low risk group: 2.7% 30-day mortality. Consider outpatient treatment. INPUTS: Confusion ?> 0 = No BUN >19 mg/dL (>7 mmol/L urea) ?> 0 = No Respiratory Rate >=0 ?> 0 = No Systolic BP <90 mmHg or Diastolic BP <=0 mmHg ?> 0 = No Age >=5 ?> 1 = Yes Consults: None necessary Patient Education/Shared MDM: Results shared with patient and her daughter. She endorses improvement following medication administration. Patient strongly advised to maintain hydration status upon discharge and follow-up with her PCP as soon as possible. She will be discharged home with prescription for Augmentin (UTI treatment), Prednisone, Tessalon Pearles and Tamiflue. Strict return precautions provided. Patient verbalized understanding is in agreement with plan. Vital signs stable at time of discharge. All questions answered. Differential Diagnosis Differential diagnosis: Likely upper respiratory infection, sinusitis, viral infection, bronchitis and influenza Lab Data Attestation: I reviewed the patient's lab results. 01/12/25 01:19 01/12/25 01:19 Labs: Lab Results 01/12/25 01/12/25 01/12/25 Range/Units 00:14 01:19 02:41 WBC 5.4 (4.5-10.0) K/mm3 RBC 3.38 L (4.2-5.4) M/mm3 Hgb 10.8 L (12.0-15.0) g/dL Hct 33.3 L (37.0-47.0) % MCV 98.5 (80-100) fl MCH 32.0 (26-34) pg MCHC 32.4 (32-36) g/dl RDW 13.9 (11.5-14.5) % Plt Count 185 (150-375) k/mm3 MPV 9.1 (7.4-10.4) fl Immature Gran % (Auto) 0.4 (0-0.5) % Neut % (Auto) 78.3 H (45.5-73.1) % Lymph % (Auto) 10.6 L (18.3-44.2) % [place] % (Auto) 9.9 H (2.6-8.5) % Eos % (Auto) 0.4 (0-4.4) % Baso % (Auto) 0.4 (0.2-1.2) % Lymph # (Auto) 0.57 L (0.9-3.2) K/mm3 [place] # (Auto) 0.5 (0.1-0.6) K/mm3 Eos # (Auto) 0.0 (0-0.3) K/mm3 Baso # (Auto) 0.0 (0.0-0.1) K/mm3 Abs Immat Gran (auto) 0.02 (0.00-0.031) K/mm3 Absolute Neuts (auto) 4.2 (1.3-6.7) K/mm3 Absolute Nucleated RBC 0.000 (0.0-0.012) K/mm3 Nucleated RBC % 0.0 (0.0-0.2) % PT 14.0 (11.1-14.7) Seconds INR 1.0 APTT 32.7 (22.3-36.8) Seconds D-Dimer 1.23 H (<0.48) ug/mL Sodium 134 L (137-145) mmol/L Potassium 4.4 (3.4-5.0) mmol/L Chloride 98 (98-107) mmol/L Carbon Dioxide 30 (22-30) mmol/L Anion Gap 6 (4-12) mmol/L BUN 16 (7-17) mg/dL Creatinine 0.81 (0.7-1.0) mg/dL Estim Creat Clear Calc 41 ml/min Estimated GFR > 60 (59 - ) Glucose 107 (65-110) mg/dL Lactic Acid 0.9 (0.7-2.0) mmol/L Calcium 8.4 (8.4-10.2) mg/dL Magnesium 1.9 (1.6-2.3) mg/dL Total Bilirubin 0.6 (0.2-1.3) mg/dL AST 25 (14-36) U/L ALT 17 (6-35) U/L Alkaline Phosphatase 67 (38-126) U/L Troponin I < 0.012 (0.000-0.034) ng/mL NT-Pro-B Natriuret Pep 723 H (19.9-100) pg/mL Total Protein 7.0 (6.3-8.2) g/dL Albumin 3.4 L (3.5-5.1) g/dL Urine Color Yellow (Yellow) Urine Appearance Cloudy H (Clear) Urine pH 7.0 (5.0-9.0) Ur Specific [place] 1.031 (1.001-1.035) Urine Protein Negative (Negative) mg/dL Urine Glucose (UA) Negative (Negative) mg/dL Urine Ketones Negative (Negative) mg/dL Ur Blood (Man) Trace (Negative) Urine Nitrate Negative (Negative) Urine Bilirubin Negative (Negative) Urine Urobilinogen 0.2 (<2.0) mg/dL Leukocyte Esterase Rfl 3+ H (Negative) YVES/UL Urine RBC 3-5 H (0-2) /hpf Urine WBC >100 H (0-3) /hpf Ur Squamous Epith Cells None seen (Few) /hpf Urine Bacteria 2+ H /hpf Urine Casts 0-2 Influenza A (RT-PCR) Positive A (Negative) Influenza B (RT-PCR) Negative (Negative) RSV (RT-PCR) Negative (Negative) SARS-CoV-2 RNA (RT-PCR) Negative (Negative) Imaging Data My impression: Patient's CTA PE scan was unremarkable for pneumonia or other acute abnormalities. Discharge Plan Discharge Clinical Impression: Urinary tract infection, Upper respiratory infection, Influenza Patient Disposition: Home, Self-Care Condition: Stable Instructions: Antibiotic Form, Influenza (ED) Additional Instructions: Please return to the ER with any worsening symptoms. Follow-up with primary care provider in the next 2-3 days. Please take all medications as prescribed. Patient Language: Nicarag[place] Prescriptions: New prednisone 20 mg tablet 20 mg PO BID Qty: 10 0RF benzonatate 100 mg capsule 100 mg PO TID Qty: 14 0RF oseltamivir [Tamiflu] 75 mg capsule 75 mg PO Q12H 5 Days Qty: 10 0RF amoxicillin-pot clavulanate 875-125 mg tablet 1 tablet PO Q12H Qty: 20 0RF No Action multivitamin Tablet 1 tablet PO DAILY zinc amino acid chelate 50 mg Tablet 1 mg PO BID Previgen 1 tab-cap PO DAILY glucosamine-chondroitin 900 mg tablet 1 mg PO BID ferrous sulfate [Iron (ferrous sulfate)] 325 mg (65 mg iron) tablet 325 mg PO DAILY Qty: 90 0RF cholecalciferol (vitamin D3) 50 mcg (2,000 unit) tablet 100 mcg PO DAILY trazodone 50 mg tablet See Rx Instructions .ROUTE .COMPLEX Qty: 90 1RF Dose Instruction: TAKE 1 TABLET BY MOUTH DAILY AT BEDTIME NEEDED FOR SLEEP Rx Instructions: TAKE 1 TABLET BY MOUTH DAILY AT BEDTIME NEEDED FOR SLEEP Urelle 81-10.8-40.8 mg tablet 1 tablet PO DAILY PRN (Reason: urinary discomfort) calcium carbonate [Calcium 600] 600 mg calcium (1,500 mg) tablet 600 mg PO BID gabapentin [Neurontin] 100 mg capsule 100 mg PO DAILY albuterol sulfate [ProAir HFA] 90 mcg/actuation HFA aerosol inhaler 2 puff INHALATION Q4H PRN (Reason: Allergy Symptoms) Qty: 6.7 0RF Patient Comments: .. fluoxetine 10 mg capsule See Rx Instructions .ROUTE .COMPLEX Qty: 90 3RF Dose Instruction: TAKE 1 CAPSULE BY MOUTH DAILY Rx Instructions: TAKE 1 CAPSULE BY MOUTH DAILY budesonide-formoterol [Symbicort] 160-4.5 mcg/actuation HFA aerosol inhaler See Rx Instructions .ROUTE .COMPLEX Qty: 30.6 3RF Dose Instruction: USE 2 INHALATIONS BY MOUTH EVERY 12 HOURS Rx Instructions: USE 2 INHALATIONS BY MOUTH EVERY 12 HOURS Follow-up/Referrals: Camilo Vazquez MD [Primary Care Provider] - Time of Disposition: 04:34
[2025-01-12 01:26] LABS: Basophils Percent Auto 0.4 % (0.2-1.2); Eosinophils Percent Auto 0.4 % (0-4.4); Hematocrit 33.3 % (37.0-47.0); Hemoglobin 10.8 g/dL (12.0-15.0); Immature Granulocyte Absolute 0.02 K/mm3 (0.00-0.031); Immature Granulocyte Percent A 0.4 % (0-0.5); Lymphocytes Absolute Auto 0.57 K/mm3 (0.9-3.2); Lymphocytes Percent Auto 10.6 % (18.3-44.2); Mean Corpuscular HGB Conc 32.4 g/dl (32-36); Mean Corpuscular Volume 98.5 fl (80-100); Mean Platelet Volume 9.1 fl (7.4-10.4); Monocytes Absolute Auto 0.5 K/mm3 (0.1-0.6); Monocytes Percent Auto 9.9 % (2.6-8.5); Neutrophils Absolute Auto 4.2 K/mm3 (1.3-6.7); Neutrophils Percent Auto 78.3 % (45.5-73.1); Platelet Count Result 185 k/mm3 (150-375); Red Blood Count 3.38 M/mm3 (4.2-5.4); Red Cell Distribution Width 13.9 % (11.5-14.5); White Blood Count 5.4 K/mm3 (4.5-10.0)
[2025-01-12] MEDS: SODIUM CHLORIDE 0.9% IV 1,000 ML 500 ML IV CONT (01:32)
[2025-01-12 01:37] LABS: Lactic Acid Reflex 0.9 mmol/L (0.7-2.0)
[2025-01-12 01:38] LABS: Partial Thromboplastin Time 32.7 Seconds (22.3-36.8)
[2025-01-12 01:39] LABS: Alanine Aminotransferase 17 U/L (6-35); Albumin Level 3.4 g/dL (3.5-5.1); Alkaline Phosphatase 67 U/L (38-126); Anion Gap 6 mmol/L (4-12); Aspartate Amino Transferase 25 U/L (14-36); Bilirubin,Total 0.6 mg/dL (0.2-1.3); Blood Urea Nitrogen 16 mg/dL (7-17); Calcium 8.4 mg/dL (8.4-10.2); Carbon Dioxide 30 mmol/L (22-30); Chloride 98 mmol/L (98-107); Estimated CRCL calculation 41 ml/min; Estimated Glomerular Filt Rate > 60; Glucose 107 mg/dL (65-110); Magnesium 1.9 mg/dL (1.6-2.3); Potassium 4.4 mmol/L (3.4-5.0); Sodium 134 mmol/L (137-145)
[2025-01-12 01:44] LABS: D Dimer 1.23 ug/mL (<0.48)
[2025-01-12 01:50] LABS: NT Pro B Type Natriuretic Pept 723 pg/mL (19.9-100); Troponin I < 0.012 ng/mL (0.000-0.034)
[2025-01-12 02:55] LABS: Add Urine Microscopic? YES; Appearance Urine Cloudy (Clear); Bacteria Urine 2+ /hpf; Bilirubin Urine Negative (Negative); Blood Urine Trace (Negative); Color Urine Yellow (Yellow); Glucose Urine UA Negative (Negative); Ketones Urine Negative (Negative); Leukocyte Esterase Ur 3+ LEU/UL (Negative); Nitrate Urine Negative (Negative); Non Pathogenic Casts 0-2; Protein Urine Negative (Negative); Specific Grav Ur 1.031 (1.001-1.035); Squamous Epithelial Cell Urine None Seen /hpf (Few); Urobilinogen Urine 0.2 mg/dL (<2.0); WBC Urine >100 /hpf (0-3)
[2025-01-12 02:57] VITALS: BP 141/60; PULSE 76; RESP 18; TEMP 37.3; O2SAT 93
[2025-01-12] MEDS: dexAMETHasone SOD PHOS INJ 10 MG/ML 1 ML VIAL IV PUSH (03:29)
[2025-01-12] MEDS: KETOROLAC 15 MG/ML VIAL (*BKC) IV PUSH (03:29)
[2025-01-12 05:01] VITALS: BP 138/86; PULSE 78; RESP 16; O2SAT 93
== END 2025-01-12 05:03 | disposition home or self-care (01) ==
PROVIDERS: Emergency Provider Registered Nurse; PCP Family Medicine
DX: J10.1 Influenza due to other identified influenza virus with other respiratory manifestations (principal); N39.0 Urinary tract infection, site not specified; Z20.822 Contact with and (suspected) exposure to COVID-19; C90.00 Multiple myeloma not having achieved remission; J45.909 Unspecified asthma, uncomplicated; Z86.711 Personal history of pulmonary embolism; Z90.710 Acquired absence of both cervix and uterus; Z79.899 Other long term (current) drug therapy
CPT/HCPCS: 36415; 71275; 80053; 81001; 83605; 83735; 83880; 84484; 85025; 85380; 85610; 85730; 87040; 87086; 87186; 87637; 93005; 96361; 96365; 96375; 99284; J0696; J1100; J1885; J7030; Q9967